=== PATIENT | female | born 1950 | race Caucasian/White ===

== ENCOUNTER → 2016-12-17 | Outpatient (REF) | payer OTHER | LOC: M SFHCCLAY 06:58 | PROVIDERS: ATTEND Family Medicine | DX: Z53.8 Procedure and treatment not carried out for other reasons (principal); E11.9 Type 2 diabetes mellitus without complications; I10 Essential (primary) hypertension ==

== ENCOUNTER → 2017-03-14 | Outpatient (REF) | payer OTHER, SELFPAY ==
[2017-03-14 11:41] LABS: MEAN CORPUSCULAR HGB CONC 31.9 g/dl (32.0-36.5); MEAN CORPUSCULAR VOLUME 87.5 fl (80.0-96.0)
[2017-03-14 11:53] LABS: ALBUMIN 3.8 GM/DL (3.2-5.2); ALBUMIN/GLOBULIN RATIO 0.9 (1.00-1.93); BILIRUBIN,TOTAL 0.6 MG/DL (0.2-1.0); CALCIUM LEVEL 9.8 MG/DL (8.8-10.2); GLOMERULAR FILTRATION RATE 59.4 (>45); POTASSIUM SERUM 5.1 MEQ/L (3.5-5.1)
== END ==
LOC: M SFHCCLAY 08:52
PROVIDERS: ATTEND Family Medicine
DX: R10.11 Right upper quadrant pain (principal)

== ENCOUNTER → 2017-03-20 | Outpatient (CLI) | payer SELFPAY ==
[~2017-03-20] MED LIST: E-Z-GAS II EFFERVESCENT PACKET (SODIUM BICARB./CITRIC ACID/SIMETHICONE) As Ordered ONE; E-Z-HD 98% w/w 340GM SUSP BTL As Ordered ONE; E-Z-PAQUE 96% w/w SUSP 176GM BTL As Ordered ONE
--- NOTE | 2017-03-20 16:46 | REP ---
UPPER GI, AIR CONTRAST: The procedure was performed under the direct supervision of Dr. Rendon. The images were reviewed with Dr. Rendon. The athletics director film shows no organomegaly or pathological masses. The intestinal gas pattern is nonspecific. Liquid barium and gas-producing granules were given in the erect position as well as liquid barium in the prone oblique position in order to perform a double contrast upper GI examination. The oral and pharyngeal stages of deglutition are unremarkable. Esophageal transport is prompt and efficient and there is no esophagitis, stricture, mucosal ring or hiatal hernia. Gastroesophageal reflux is not demonstrated on this examination. The stomach hinojosa are normally outlined. The rugal folds are smooth and regular. There is no gastritis, neoplasm or ulcer disease. The duodenal hinojosa are normally outlined. The mucosal folds are smooth and regular. There is no duodenitis, pancreatitis, peptic ulcer disease or neoplasm. The visualized portion of the proximal small bowel appears normal in course and caliber. The barium column was followed through the small bowel to the level of the terminal ileum. Small bowel transit time is approximately 1 hour and 10 minutes. During fluoroscopy gentle palpation shows all loops are freely movable and pliable. There are no fixed or angulated loops. The small bowel mucosal pattern is normal in course and caliber. There is no transition to suggest a partial small bowel obstruction. Spot filming of the terminal ileum shows it to be unremarkable. IMPRESSION: Essentially unremarkable double contrast upper GI and small bowel follow through examination. 2 minutes and 26 seconds of fluoroscopy time was utilized for this procedure. Reviewed by REGAN Chaves 03/21/2017 04:18 PEdited and Signed by Guillermo Rendon MD 03/21/2017 04:21 P
--- NOTE | 2017-03-21 03:07 | REP ---
Clinical: Right upper quadrant pain. Technique: Real time scott scale ultrasound examination using curved array transducer. Findings: The patient is status post cholecystectomy. No biliary ductal dilatation is appreciated and the common bile duct measures 6.7 mm diameter. The liver demonstrates increased parenchymal echogenicity and nodular contour suggesting cirrhosis. No focal hepatic lesions are identified. Right kidney is normal in reniform shape without hydronephrosis and measures 10.5 x 4.6 x 3.4 cm with 1.2 cm cortical mid pole cyst. No ascites in the right upper quadrant. Impression: Findings to suggest cirrhosis without focal hepatic lesion identified. Essentially normal right kidney with small cyst and no hydronephrosis. Signed by William Hartley MD 03/21/2017 02:59 A
== END ==
LOC: M RAD 08:30
PROVIDERS: ATTEND Family Medicine
DX: N28.1 Cyst of kidney, acquired (principal)

== ENCOUNTER → 2017-03-28 | Outpatient (REF) | payer OTHER, SELFPAY ==
[2017-03-28 12:02] LABS: FERRITIN 29 NG/ML (8-252)
[2017-03-28 13:00] LABS: HEPATITIS B SURFACE ANTIBODY NEGATIVE (POSITIVE)
== END ==
LOC: M SFHCCLAY 08:23
PROVIDERS: ATTEND Family Medicine
DX: K74.60 Unspecified cirrhosis of liver (principal)

== ENCOUNTER → 2017-08-12 | Outpatient (CLI) | payer MEDICARE ==
[~2017-08-12] MED LIST changes: +ASPI325T24 PO; +BENA25CA4 PO; -E-Z-GAS II EFFERVESCENT PACKET (SODIUM BICARB./CITRIC ACID/SIMETHICONE) As Ordered ONE; -E-Z-HD 98% w/w 340GM SUSP BTL As Ordered ONE; -E-Z-PAQUE 96% w/w SUSP 176GM BTL As Ordered ONE; +GAVICHW PO; +LOSA25TA8 PO; +METF500T4 PO; +METO50TA7 PO; +RANI15TA PO; +TYLE500T78 PO
[2017-08-12 11:42] LABS: INR 1.06
[2017-08-12 12:02] LABS: ALBUMIN 3.8 GM/DL (3.2-5.2); ALKALINE PHOSPHATASE 142 U/L (45-117); ALT/SGPT 30 U/L (12-78); AST/SGOT 33 U/L (15-37); BILIRUBIN,DIRECT 0.2 MG/DL (0.0-0.2); BILIRUBIN,TOTAL 0.6 MG/DL (0.2-1.0); GAMMA GLUTAMYLTRANSPEPTIDASE 297 U/L (5-55); TOTAL IRON BINDING CAPACITY 468 UG/DL (250-450); TOTAL PROTEIN 7.6 GM/DL (6.4-8.2)
[2017-08-15 00:07] LABS: SJOGREN'S ANTI SS-A <0.2 AI (0.0-0.9); SJOGREN'S ANTI SS-B <0.2 AI (0.0-0.9)
== END ==
LOC: M LAB 10:43
PROVIDERS: ATTEND Internal Medicine Gastroenterology
DX: R93.3 Abnormal findings on diagnostic imaging of other parts of digestive tract (principal); Z12.11 Encounter for screening for malignant neoplasm of colon; Z79.899 Other long term (current) drug therapy; K74.60 Unspecified cirrhosis of liver; I10 Essential (primary) hypertension

== ENCOUNTER → 2017-11-28 | Outpatient (CLI) | payer MEDICARE | LOC: M SMT 10:21 | DX: R33.9 Retention of urine, unspecified (principal); Z98.890 Other specified postprocedural states | CPT/HCPCS: 74018; G0463 ==

== ENCOUNTER → 2017-12-11 | Outpatient (REF) | payer MEDICARE ==
[2017-12-11 11:46] LABS: HEMATOCRIT 35.1 % (36.0-47.0); HEMOGLOBIN 11.4 g/dl (12.0-16.0); MEAN CORPUSCULAR HEMOGLOBIN 25.8 pg (27.0-33.0); MEAN CORPUSCULAR HGB CONC 32.5 g/dl (32.0-36.5); MEAN CORPUSCULAR VOLUME 79.4 fl (80.0-96.0); PLATELET COUNT, AUTOMATED 525 10^3/uL (150-450); RED BLOOD COUNT 4.42 10^6/uL (4.00-5.40); RED CELL DISTRIBUTION WIDTH 14.5 % (11.5-14.5); WHITE BLOOD COUNT 18.4 10^3/uL (4.0-10.0)
[2017-12-11 12:00] LABS: ANION GAP 13 MEQ/L (8-16); BLOOD UREA NITROGEN 45 MG/DL (7-18); CALCIUM LEVEL 9.7 MG/DL (8.8-10.2); CARBON DIOXIDE LEVEL 24 MEQ/L (21-32); CHLORIDE LEVEL 86 MEQ/L (98-107); CREATININE FOR GFR 2.77 MG/DL (0.55-1.30); GLOMERULAR FILTRATION RATE 18.3 (>45); GLUCOSE, FASTING 152 MG/DL (70-100); POTASSIUM SERUM 5.1 MEQ/L (3.5-5.1); SODIUM LEVEL 123 MEQ/L (136-145)
[2017-12-11 12:08] LABS: ESTIMATED AVERAGE GLUCOSE 200 MG/DL (60-110); HEMOGLOBIN A1c 8.6 %
== END ==
LOC: M SFHCCLAY 09:06
DX: E11.9 Type 2 diabetes mellitus without complications (principal); I10 Essential (primary) hypertension; Z93.2 Ileostomy status
CPT/HCPCS: 83036

== ENCOUNTER 2017-12-12 10:36 | Outpatient (CLI) | payer MEDICARE ==
[2017-12-12] MEDS: SODIUM CHLORIDE 0.9% 1000 ML IV (11:44)
[2017-12-12] MEDS: NS 1,000 ML IV (11:44)
[2017-12-12] MEDS: ACETAMINOPHEN TAB 650MG DOSE (2X325MG) PO (14:15)
== END 2017-12-12 17:05 | disposition home or self-care (01) ==
LOC: M OPCLI4PR 10:36 → M PED 10:41 → M OPCLI4PR 17:05
DX: E86.0 Dehydration (principal); Z79.891 Long term (current) use of opiate analgesic; Z79.899 Other long term (current) drug therapy; Z88.0 Allergy status to penicillin; Z88.5 Allergy status to narcotic agent; Z88.8 Allergy status to other drugs, medicaments and biological substances
CPT/HCPCS: 96360

== ENCOUNTER → 2017-12-15 | Outpatient (REF) | payer MEDICARE ==
[2017-12-15 11:37] LABS: BASO # 0.1 10^3/uL (0.0-0.2); BASO % 0.6 % (0.0-1.0); EOS # 0.4 10^3/uL (0.0-0.50); EOS % 2.7 % (0.0-3.0); HEMATOCRIT 33.3 % (36.0-47.0); HEMOGLOBIN 10.6 g/dl (12.0-16.0); IMMATURE GRANULOCYTE % 0.4 % (0-3.0); LYMPH # 3.7 10^3/uL (1.5-4.5); LYMPH % 28.3 % (24.0-44.0); MEAN CORPUSCULAR HGB CONC 31.8 g/dl (32.0-36.5); MEAN CORPUSCULAR VOLUME 81.6 fl (80.0-96.0); MONO # 0.6 10^3/uL (0.0-0.8); MONO % 4.3 % (0.0-5.0); NEUTROPHILS # 8.2 10^3/uL (1.8-7.7); NEUTROPHILS % 63.7 % (36.0-66.0); PLATELET COUNT, AUTOMATED 461 10^3/uL (150-450); RED BLOOD COUNT 4.08 10^6/uL (4.00-5.40); RED CELL DISTRIBUTION WIDTH 15.4 % (11.5-14.5); WHITE BLOOD COUNT 12.9 10^3/uL (4.0-10.0)
[2017-12-15 11:48] LABS: ANION GAP 9 MEQ/L (8-16); BLOOD UREA NITROGEN 27 MG/DL (7-18); CALCIUM LEVEL 9.8 MG/DL (8.8-10.2); CARBON DIOXIDE LEVEL 24 MEQ/L (21-32); CHLORIDE LEVEL 99 MEQ/L (98-107); CREATININE FOR GFR 1.43 MG/DL (0.55-1.30); GLOMERULAR FILTRATION RATE 39.2 (>45); GLUCOSE, FASTING 145 MG/DL (70-100); POTASSIUM SERUM 4.3 MEQ/L (3.5-5.1); SODIUM LEVEL 132 MEQ/L (136-145)
== END ==
LOC: M SFHCCLAY 08:30
DX: N17.9 Acute kidney failure, unspecified (principal)
CPT/HCPCS: 80048

== ENCOUNTER → 2018-07-06 | Outpatient (REF) | payer MEDICARE ==
[2018-07-06 12:43] LABS: HEMATOCRIT 34.8 % (36.0-47.0); HEMOGLOBIN 10.9 g/dl (12.0-15.5); MEAN CORPUSCULAR HEMOGLOBIN 27.6 pg (27.0-33.0); MEAN CORPUSCULAR HGB CONC 31.3 g/dl (32.0-36.5); MEAN CORPUSCULAR VOLUME 88.1 fl (80.0-96.0); PLATELET COUNT, AUTOMATED 164 10^3/uL (150-450); RED BLOOD COUNT 3.95 10^6/uL (4.00-5.40); RED CELL DISTRIBUTION WIDTH 15.4 % (11.5-14.5); WHITE BLOOD COUNT 4.5 10^3/uL (4.0-10.0)
[2018-07-06 13:49] LABS: MALB URINE SIEMENS 35.5 MG/L
[2018-07-06 13:50] LABS: MAU/CREAT RATIO 27.7 MCG/MG (0.0-30.0)
[2018-07-06 14:01] LABS: ALBUMIN 3.7 GM/DL (3.2-5.2); ALBUMIN/GLOBULIN RATIO 1.03 (1.00-1.93); ALKALINE PHOSPHATASE 94 U/L (45-117); ALT/SGPT 19 U/L (12-78); ANION GAP 9 MEQ/L (8-16); AST/SGOT 26 U/L (7-37); BILIRUBIN,TOTAL 0.3 MG/DL (0.2-1.0); BLOOD UREA NITROGEN 22 MG/DL (7-18); CALCIUM LEVEL 9.5 MG/DL (8.8-10.2); CARBON DIOXIDE LEVEL 25 MEQ/L (21-32); CHLORIDE LEVEL 110 MEQ/L (98-107); CHOLESTEROL LEVEL 206 MG/DL (<200); CHOLESTEROL RISK RATIO 3.218 (<5); CREATININE FOR GFR 0.86 MG/DL (0.55-1.30); GLOMERULAR FILTRATION RATE > 60.0 (>45); GLUCOSE, FASTING 104 MG/DL (70-100); HDL CHOLESTEROL 64 MG/DL (>40); LDL CHOLESTEROL 116 MG/DL (<100); NON-HDL-C 142 MG/DL; POTASSIUM SERUM 4.1 MEQ/L (3.5-5.1); SODIUM LEVEL 144 MEQ/L (136-145); TOTAL PROTEIN 7.3 GM/DL (6.4-8.2); TRIGLYCERIDES LEVEL 128 MG/DL (<150)
[2018-07-06 16:04] LABS: ESTIMATED AVERAGE GLUCOSE 114 MG/DL (60-110); HEMOGLOBIN A1c 5.6 %
[2018-07-06 17:22] LABS: AMMONIA 99 uMOL/L (<32)
== END ==
LOC: M SFHCCLAY 08:23
DX: K74.60 Unspecified cirrhosis of liver (principal); I10 Essential (primary) hypertension; E11.9 Type 2 diabetes mellitus without complications
CPT/HCPCS: 82140

== ENCOUNTER → 2018-09-01 | Outpatient (CLI) | payer MEDICARE ==
[~2018-09-01] MED LIST changes: -ASPI325T24 PO; -BENA25CA4 PO; +GASTROGRAFIN SOLUTION 30ML (Q9963) As Ordered; -GAVICHW PO; +ISOVUE-370 76% 100ML VIAL (Q9967) As Ordered; -LOSA25TA8 PO; -METF500T4 PO; -METO50TA7 PO; -RANI15TA PO; -TYLE500T78 PO
== END ==
LOC: M RAD 16:36
DX: D12.6 Benign neoplasm of colon, unspecified (principal); R10.9 Unspecified abdominal pain; Z90.49 Acquired absence of other specified parts of digestive tract; K43.9 Ventral hernia without obstruction or gangrene; N28.1 Cyst of kidney, acquired
CPT/HCPCS: Q9963

== ENCOUNTER → 2018-09-12 | Outpatient (CLI) | payer MEDICARE ==
[2018-09-12 14:12] LABS: URIC ACID 7.4 MG/DL (2.6-6.0)
== END ==
LOC: M WUC 11:53
DX: M19.071 Primary osteoarthritis, right ankle and foot (principal); M79.671 Pain in right foot
CPT/HCPCS: 84550

== ENCOUNTER 2018-12-17 04:07 | Inpatient (IN) | payer MEDICARE ==
[~2018-12-17] VITALS: Ht 160 cm; Wt 68.7 kg
[~2018-12-17 04:07] MED LIST changes: +ASPI325T25 PO; +BENA25CA4 PO; +CIPR500T3 PO; -GASTROGRAFIN SOLUTION 30ML (Q9963) As Ordered; +GAVICHW PO; -ISOVUE-370 76% 100ML VIAL (Q9967) As Ordered; +LOPE2TAB5 PO; +LOSA25TA14 PO; +METF500T4 PO; +METO50TA7 PO; +OXYC1TAB23 PO; +RANI15TA PO; +TYLE500T78 PO; +ZOFR4TAB16 PO
[2018-12-17] MEDS ORDERED: DIPH2.5T14 PO (04:25)
[2018-12-17] MEDS ORDERED: ATEN25TA PO (04:25)
[2018-12-17] MEDS ORDERED: ONDA4TAB5 PO (04:25)
[2018-12-17] MEDS ORDERED: ONDANSETRON 4MG/2ML VIAL (J2405) As Ordered ONE (04:34)
[2018-12-17] MEDS ORDERED: MORPHINE 2 MG/ML 1ML SYRINGE (J2270) As Ordered ONE (04:55)
[2018-12-17] MEDS: MORPHINE 2 MG/ML 1ML SYRINGE (J2270) IV PRN ×2 (04:59→05:32)
[2018-12-17] MEDS ORDERED: ONDANSETRON 4MG/2ML VIAL (J2405) IV ONE (05:00)
[2018-12-17] MEDS ORDERED: NS 1,000 ML IV ONE (05:00)
[2018-12-17 05:14] LABS: BASO # 0.1 10^3/uL (0.0-0.2); BASO % 0.3 % (0.0-1.0); EOS # 0.1 10^3/uL (0.0-0.50); EOS % 0.7 % (0.0-3.0); HEMATOCRIT 40.2 % (36.0-47.0); HEMOGLOBIN 12.7 g/dl (12.0-15.5); LYMPH # 2.4 10^3/uL (1.5-4.5); LYMPH % 11.6 % (24.0-44.0); MEAN CORPUSCULAR HEMOGLOBIN 27.1 pg (27.0-33.0); MEAN CORPUSCULAR HGB CONC 31.6 g/dl (32.0-36.5); MEAN CORPUSCULAR VOLUME 85.9 fl (80.0-96.0); MONO # 1.2 10^3/uL (0.0-0.8); NEUTROPHILS # 16.3 10^3/uL (1.8-7.7); NEUTROPHILS % 80.9 % (36.0-66.0); PLATELET COUNT, AUTOMATED 270 10^3/uL (150-450); RED BLOOD COUNT 4.68 10^6/uL (4.00-5.40); WHITE BLOOD COUNT 20.2 10^3/uL (4.0-10.0)
[2018-12-17 05:17] LABS: INR 1.15; PROTHROMBIN TIME 14.9 SECONDS (12.1-14.4)
[2018-12-17 05:18] LABS: PARTIAL THROMBOPLASTIN TIME 33.2 SECONDS (25.4-37.6)
[2018-12-17 05:26] LABS: ALBUMIN 4.1 GM/DL (3.2-5.2); BILIRUBIN,DIRECT 0.1 MG/DL (0.0-0.2); BILIRUBIN,TOTAL 0.4 MG/DL (0.2-1.0); CALCIUM LEVEL 9.4 MG/DL (8.8-10.2); CREATININE FOR GFR 1.23 MG/DL (0.55-1.30); GLOMERULAR FILTRATION RATE 46.5 (>45); POTASSIUM SERUM 3.5 MEQ/L (3.5-5.1); TOTAL PROTEIN 8.3 GM/DL (6.4-8.2)
[2018-12-17] MEDS ORDERED: METOCLOPRAMIDE INJ 10MG/2ML VIAL (J2765) As Ordered ONE (05:39)
[2018-12-17] MEDS ORDERED: METOCLOPRAMIDE INJ 10MG/2ML VIAL (J2765) IV ONE ×2 (05:45→07:30)
[2018-12-17] MEDS ORDERED: ISOVUE-370 76% 100ML VIAL (Q9967) As Ordered ONE (05:56)
--- NOTE | 2018-12-17 06:58 | REPVR ---
EXAM: CT Abdomen and Pelvis With Contrast EXAM DATE/TIME: 12/17/2018 5:50 AM CLINICAL HISTORY: 68 years old, female; Pain; Abdominal pain; Generalized; Additional info: Abd pain, nvd TECHNIQUE: Axial computed tomography images of the abdomen and pelvis with intravenous contrast. All CT scans at this facility use at least one of these dose optimization techniques: automated exposure control; mA and/or kV adjustment per patient size (includes targeted exams where dose is matched to clinical indication); or iterative reconstruction. Coronal and sagittal reformatted images were created and reviewed. CONTRAST: Contrast Material: 100 ml of iso; Contrast Route: ac COMPARISON: CT ABD PELVIS WITH CONTRAST 09/01/2018 6:25 PM FINDINGS: Lower thorax: There is minimal, nonspecific dependent density in the lung bases. ABDOMEN: Liver: The liver is mildly enlarged, unchanged. The surface of the liver again appears nodular, consistent with cirrhosis. There is a small amount of perihepatic fluid. Gallbladder and bile ducts: There is stable mild biliary ductal dilation. There has been a cholecystectomy. Pancreas: The pancreas is normal with no ductal dilation. Spleen: Several small sites of focal hyperenhancement in the spleen are unchanged. The spleen is again enlarged measuring 16 cm craniocaudal. Adrenals: The adrenal glands are normal. Kidneys and ureters: Mild diffuse thinning of the right renal parenchyma is seen, indicating atrophy, unchanged. There is a 1.9 x 1.7 cm hyperdense lesion in the right kidney midpole posteriorly, unchanged in size and appearance compared to the prior exam. There is a hyperdense 18 mm right kidney upper pole lesion increased in size compared to 14 mm on the prior exam. There is a stable low attenuation 13 mm right kidney lower pole lesion and small stable cysts in the left kidney. There are no ureteral stones or hydronephrosis. Stomach and bowel: There is again evidence of a colon resection and a distal anastomotic suture line and a J-pouch. There is fluid throughout the small bowel and the J-pouch without significant dilation. No significant bowel wall thickening is identified. Mild stranding around the J-pouch appears similar to the prior exam and may be postoperative change. Appendix: Absent. PELVIS: Bladder: The bladder is mostly collapsed. No bladder stones are identified. Reproductive: The uterus is absent. ABDOMEN and PELVIS: Intraperitoneal space: There is no free intraperitoneal air. Bones/joints: No suspicious osseous lesions. No acute fractures or dislocations. Soft tissues: There is a small midline upper anterior abdominal wall hernia containing fat. Vasculature: Atherosclerotic changes are present in the abdominal aorta and the iliac arteries. Lymph nodes: Normal. No enlarged lymph nodes. IMPRESSION: 1. Fluid throughout the bowel without dilation or significant bowel wall thickening. Mild stranding around the distal bowel, around what is likely a J-pouch, appears grossly unchanged and may be postoperative in nature or persistent mild inflammation. 2. No free air or free fluid. 3. Hepatomegaly, a nodular surface of the liver, and mild splenomegaly, unchanged. 4. Several hyperdense lesions in the right kidney, which may be hyperdense cysts but are not fully assessed on this exam. As there is increase in size of one lesion in the upper pole of the right kidney, consider further evaluation with MRI or multiphasic CT scan. COMMENT: Consistent with the [employer] Incidental Findings Committee Report (J Am Sofia Radiol 2010): Unless the patients specific circumstances suggest otherwise, any liver lesion 0.5 cm or less, any cystic kidney lesion less than 1.0 cm, and/or any adrenal lesion 1.0 cm or less not otherwise characterized in this report as possessing suspicious or indeterminate imaging features is/are highly likely to be benign and do not require follow-up imaging or biopsy. Electronically signed by: Frida Ocampo On 12/17/2018 06:58:00 AM
[2018-12-17] MEDS ORDERED: ONDANSETRON 4 MG TAB (S0181) PO PRN (12:30)
--- NOTE | 2018-12-17 13:11 | HPEPDOC ---
[facility] Medical History & Physical Date of Admission Dec 17, 2018 Primary Care Physician: Braeden Nava MD Attending Physician: Pavel Skinner MD History and Physical CHIEF COMPLAINT: Nausea, vomiting, diarrhea. HISTORY OF PRESENT ILLNESS: Patient is a 68 year old female with past medical history significant for total colectomy with ileal J pouch presents with nausea, vomiting, and diarrhea. Patient says it all started around 2 AM this morning. She woke up nauseated and vomited several times. A few hours later she began to have liquid watery stools, several times. Also has some abdominal discomfort but not pain. Points to pain in center of abdomen. She had her Colectomy about a month ago. Has been on immodium for diarrhea. Denies fevers, chills, night sweats. No unusual foods. Denies nsaid use, recent alcohol use. Has a sip of wine every now and then. PAST MEDICAL HISTORY: 1. HTN 2. Hypercholesterolemia 3. Diabetes 4. GERD 5. Tachycardia 6. Gout PAST SURGICAL HISTORY: 1. Total colectomy with ileal J pouch 11/19/17 2. Ileostomy reversal 01/2018 3. Hysterectomy 2001 4. Colonoscopy/ endoscopy 2009 SOCIAL HISTORY: Marital status: . Resides in: [place], [place] Children:two children Employment: House Tobacco use:Former smoker, quit 09/2015 ETOH: occasional, none lately Illicit drug use: none IV drug use: deny FAMILY HISTORY: Father: , cancer Mother: , diabetes ALLERGIES: Please see below. REVIEW OF SYSTEMS: CONSTITUTIONAL: No fevers, chills. HEENT: No headache. CARDIOVASCULAR: No chest pain, palpitations. RESPIRATORY: Clear to auscultation. GASTROINTESTINAL: Pos for nausea, vomiting, diarrhea. GENITOURINARY: No urinary frequency. SKIN: No rashes, lesions. MUSCULOSKELETAL: No muscle aches, weakness. NEUROLOGICAL: No numbness. PSYCHIATRIC: No depression ENDOCRINE: No night sweats. HEMATOLOGIC/LYMPHATIC: No bruising. HOME MEDICATIONS: Please see below. PHYSICAL EXAMINATION: VITAL SIGNS: Temperature 99.4, pulse 92, respiratory rate 22, blood pressure 114/63, pulse oximetry 96% on room air. GENERAL APPEARANCE: Cooperative. No distress. Laying in bed. HEENT: Atraumatic. CARDIOVASCULAR: Normal s1, s2. LUNGS: Clear to auscultation. ABDOMEN: Bowel sounds to auscultation. . MUSCULOSKELETAL: No gross weakness. EXTREMITIES: No lower extremity edema. NEUROLOGICAL: Speech intact. PSYCHIATRIC: Normal affect. LABORATORY DATA: See below. IMAGING: Abdomen/Pelvis CT 1. Fluid throughout the bowel without dilation or significant bowel wall thickening. Mild stranding around the distal bowel, around what is likely a J-pouch, appears grossly unchanged and may be postoperative in nature or persistent mild inflammation. 2. No free air or free fluid. 3. Hepatomegaly, a nodular surface of the liver, and mild splenomegaly, unchanged. 4. Several hyperdense lesions in the right kidney, which may be hyperdense cysts but are not fully assessed on this exam. As there is increase in size of one lesion in the upper pole of the right kidney, consider further evaluation with MRI or multiphasic CT scan. MICROBIOLOGY: Please see below. ASSESSMENT: A 68 year old female with PMH significant for total colectomy [place] to the ER with nausea, vomiting and diarrhea. This started this AM. PLAN: 1. Gastritis. Likely viral cause. Noted on CT scan of abdomen. Clinically monitor. Patient has elevated WBC. Repeat CBC in AM. Ordering GI panel for possible infectious causes. For abdominal pain monitor for now, not bothering patient. She has Ultram on contraindications for N/V, low BP. 2. Vomiting, nausea, diarrhea. Likely secondary to gastritis. May be secondary to patient's recent colectomy. Control patient's nausea with Reglan and Zofran as needed. Monitor diarrhea. Holding immodium for now. If GI panel negative consider restarting. 3. HTN. Patient is not on any medication for HTN at this time. Does take A tenolol PRN for tachycardia and if BP is high. 4. Tachycardia. Patient has Atenolol PRN. Patient denies taking at this time. Holding for now. 5. Diabetic. Recent A1C 5.6. Diet controlled. 6. Hypercholesterolemia. Not on any statin. No reported allergy. 7. GERD. On Ranitidine at home. 8. Kidney lesion, right. Noted on CT. Will need follow up outpatient. Vital Signs Vital Signs Date Time Temp Pulse Resp B/P (MAP) Pulse Ox O2 Delivery O2 Flow Rate FiO2 12/17/18 11:10 99.4 92 22 114/63 (80) 96 Room Air Laboratory Data Labs 24H Laboratory Tests 2 12/17/18 04:27: Immature Granulocyte % (Auto) 0.5, White Blood Count 20.2H, Red Blood Count 4.68, Hemoglobin 12.7, Hematocrit 40.2, Mean Corpuscular Volume 85.9, Mean Corpuscular Hemoglobin 27.1, Mean Corpuscular Hemoglobin Concent 31.6L, Red Cell Distribution Width 14.3, Platelet Count 270, Neutrophils (%) (Auto) 80.9H, Lymphocytes (%) (Auto) 11.6L, Monocytes (%) (Auto) 6.0H, Eosinophils (%) (Auto) 0.7, Basophils (%) (Auto) 0.3, Neutrophils # (Auto) 16.3H, Lymphocytes # (Auto) 2.4, Monocytes # (Auto) 1.2H, Eosinophils # (Auto) 0.1, Basophils # (Auto) 0.1, Nucleated Red Blood Cells % (auto) 0.0, Prothrombin Time 14.9H, Prothromb Time International Ratio 1.15, Activated Partial Thromboplast Time 33.2 12/17/18 04:28: Anion Gap 11, Glomerular Filtration Rate 46.5, Calcium Level 9.4, Aspartate Amino Transf (AST/SGOT) 24, Alanine Aminotransferase (ALT/SGPT) 23, Alkaline Phosphatase 95, Total Bilirubin 0.4, Direct Bilirubin 0.1, Total Protein 8.3H, Albumin 4.1, Albumin/Globulin Ratio 0.98L, Lipase 94 CBC/BMP Laboratory Tests 12/17/18 04:27 Red Blood Count 4.68, Mean Corpuscular Volume 85.9, Mean Corpuscular Hemoglobin 27.1, Mean Corpuscular Hemoglobin Concent 31.6 L, Red Cell Distribution Width 14.3, Neutrophils (%) (Auto) 80.9 H, Lymphocytes (%) (Auto) 11.6 L, Monocytes (%) (Auto) 6.0 H, Eosinophils (%) (Auto) 0.7, Basophils (%) (Auto) 0.3, Neutrophils # (Auto) 16.3 H, Lymphocytes # (Auto) 2.4, Monocytes # (Auto) 1.2 H, Eosinophils # (Auto) 0.1, Basophils # (Auto) 0.1 12/17/18 04:28 Home Medications Scheduled Diphenoxylate/Atropine (Diphenoxylate/Atropine 2.5-0.025 mg) 1 Ea Tab, 2 TAB PO TID Loperamide HCl (Loperamide HCl) 2 Mg Tab, 2 MG PO TID Scheduled PRN Atenolol (Atenolol) 25 Mg Tab, 25 MG PO ASDIRECTED PRN for INCREASED HR TAKES IF HR IS >100 Ondansetron HCl (Ondansetron HCl) 4 Mg Tab, 4 MG PO QID PRN for NAUSEA OR VOMITING Allergies Coded Allergies: Heparin (Verified Allergy, Severe, 12/17/18) HIVES Penicillins (Verified Allergy, Mild, HIVES, 01/18/13) Penicillins Cross Reactors (Verified Allergy, Mild, HIVES, 01/18/13) Cetirizine (Verified Allergy, Unknown, HIVES, 08/19/17) Tetanus Toxoid (Unverified Adverse Reaction, Intermediate, SWOLLEN ARM AND VERY RED, 01/18/13) Tramadol (Unverified Adverse Reaction, Mild, N/V LOW BP, 08/19/17) Codeine (Verified Adverse Reaction, Unknown, GI upset, 08/19/17) GME ATTESTATION GME ATTESTATION My faculty preceptor for this patient encounter was physically present during the encounter and was fully available. All aspects of the patient interview, examination, medical decision making process, and medical care plan development were reviewed and approved by the faculty preceptor. The faculty preceptor is aware and concurs with the plan as stated in the body of this note and will attest to such by his/her cosignature. MACKENZIE PINZON DO Dec 17, 2018 13:11
[2018-12-17 14:00] VITALS: BP 138/72
[2018-12-17] MEDS: LACTOBACILLUS ACIDOPHILUS CAP (BACID) PO SCH (17:10)
[2018-12-17] MEDS: ONDANSETRON 4MG/2ML VIAL (J2405) IV PRN (18:02)
[2018-12-17] MEDS: METOCLOPRAMIDE INJ 10MG/2ML VIAL (J2765) IV PRN (20:24)
[2018-12-17 22:00] VITALS: BP 137/75
[2018-12-18] MEDS: ACETAMINOPHEN 325 MG TAB PO PRN ×3 (01:45→20:48)
[2018-12-18] MEDS: METOCLOPRAMIDE INJ 10MG/2ML VIAL (J2765) IV PRN ×2 (05:48→23:06)
[2018-12-18 05:59] LABS: BASO # 0.1 10^3/uL (0.0-0.2); BASO % 0.4 % (0.0-1.0); EOS % 0.1 % (0.0-3.0); HEMATOCRIT 44.5 % (36.0-47.0); HEMOGLOBIN 14.6 g/dl (12.0-15.5); LYMPH # 0.9 10^3/uL (1.5-4.5); LYMPH % 5.5 % (24.0-44.0); MEAN CORPUSCULAR HGB CONC 32.8 g/dl (32.0-36.5); MEAN CORPUSCULAR VOLUME 82.4 fl (80.0-96.0); MONO # 1.2 10^3/uL (0.0-0.8); MONO % 7.4 % (0.0-5.0); NEUTROPHILS # 13.8 10^3/uL (1.8-7.7); PLATELET COUNT, AUTOMATED 309 10^3/uL (150-450)
[2018-12-18 06:00] VITALS: BP 133/77
[2018-12-18 06:28] LABS: CALCIUM LEVEL 10.5 MG/DL (8.8-10.2); CREATININE FOR GFR 3.31 MG/DL (0.55-1.30); GLOMERULAR FILTRATION RATE 14.8 (>45)
[2018-12-18] MEDS: ONDANSETRON 4MG/2ML VIAL (J2405) IV PRN (06:47)
[2018-12-18] MEDS ORDERED: NS 500 ML IV ONE (08:15)
[2018-12-18] MEDS: LACTOBACILLUS ACIDOPHILUS CAP (BACID) PO SCH ×2 (08:23→16:50)
--- NOTE | 2018-12-18 08:26 | IPNPDOC ---
Subjective Date Seen The patient was seen on 12/18/18. Subjective Chief Complaint/HPI Diarrhea seems to have let up some. no significant abd pain. Still feels nauseated. feels weaka nd having leg cramps. Constitutional: Denies: Chills, Fever Pulmonary: Denies: Dyspnea, Cough Cardiovascular: Denies: Chest Pain Gastrointestinal: Reports: Nausea, Diarrhea; Denies: Vomiting, Abdominal Pain, Constipation Objective Physical Examination General Exam: Positive: Alert, No Acute Distress ENT Exam: Negative: Mucous membr. moist/pink (bucal mucosa dry) Chest Exam: Negative: Clear to auscultation, Rales, Rhonchi, Wheezing Heart Exam: Positive: Rate Normal, Regular Rhythm Abdomen Exam: Positive: Normal bowel sounds, Soft; Negative: Tenderness Extremity Exam: Negative: Edema Skin Exam: Negative: Nl turgor and temperature (poor turgor) Assessment /Plan Problems (1) Acute kidney injury (nontraumatic) Status: Acute Response to Treatment: Worse Problem Text: 12/18 - Creatine has risen from 1 to 3.3 - likley related to dehydration in combination with MOIRA from IV contrast given in Er. IVF Bolus and maintenance ordered this am Potassium ok. Check mag level as well (2) Norovirus Status: Acute Response to Treatment: Improving Problem Text: cont Zofran and Reglan prn. Cont clear liquid diet for now CT: Fluid throughout the bowel without dilation or significant bowel wall thickening. Mild stranding around the distal bowel, around what is likely a J-pouch, appears grossly unchanged and may be postoperative in nature or persistent mild inflammation. (3) CKD (chronic kidney disease), stage III Response to Treatment: Worse Problem Text: see above (4) Kidney lesion Problem Text: Several hyperdense lesions in the right kidney, which may be hyperdense cysts but are not fully assessed on this exam. As there is increase in size of one lesion in the upper pole of the right kidney, consider further evaluation with MRI or multiphasic CT scan. Unable to perform an MRI or multiphasic CT at this time due to MOIRA - WILL NEED F/U Outpatient (5) Hepatomegaly Problem Text: CT: Hepatomegaly, a nodular surface of the liver, and mild splenomegaly, unchanged. Will need further workup and f/u as outpatient Plan/VTE VTE Prophylaxis Ordered?: Yes (TEDS/Sequentials - No heparin due to Allergy per allergy list) VTE Exclusion Pharmacological: History of Drug Allergy VS, I&O, 24H, Fishbone Vital Signs/I&O Vital Signs Date Time Temp Pulse Resp B/P (MAP) Pulse Ox O2 Delivery O2 Flow Rate FiO2 12/18/18 06:00 98.4 118 19 133/77 (95) 99 12/17/18 13:32 Room Air I&O- Last 24 Hours up to 6 AM 12/18/18 06:00 Intake Total 2800 ml Output Total 3950 ml Balance -1150 ml Laboratory Data 24H LABS Laboratory Tests 2 12/18/18 05:40: Immature Granulocyte % (Auto) 0.6, White Blood Count 16.0H, Red Blood Count 5.40, Hemoglobin 14.6, Hematocrit 44.5, Mean Corpuscular Volume 82.4, Mean Corpuscular Hemoglobin 27.0, Mean Corpuscular Hemoglobin Concent 32.8, Red Cell Distribution Width 14.5, Platelet Count 309, Neutrophils (%) (Auto) 86.0H, Lymphocytes (%) (Auto) 5.5L, Monocytes (%) (Auto) 7.4H, Eosinophils (%) (Auto) 0.1, Basophils (%) (Auto) 0.4, Neutrophils # (Auto) 13.8H, Lymphocytes # (Auto) 0.9L, Monocytes # (Auto) 1.2H, Eosinophils # (Auto) 0.0, Basophils # (Auto) 0.1, Nucleated Red Blood Cells % (auto) 0.0, Anion Gap 16, Glomerular Filtration Rate 14.8L, Blood Urea Nitrogen 39#H, Creatinine 3.31#H, Sodium Level 133#L, Potassium Level 4.0, Chloride Level 99, Carbon Dioxide Level 18L, Calcium Level 10.5H CBC/BMP Laboratory Tests 12/18/18 05:40 Red Blood Count 5.40, Mean Corpuscular Volume 82.4, Mean Corpuscular Hemoglobin 27.0, Mean Corpuscular Hemoglobin Concent 32.8, Red Cell Distribution Width 14.5, Neutrophils (%) (Auto) 86.0 H, Lymphocytes (%) (Auto) 5.5 L, Monocytes (%) (Auto) 7.4 H, Eosinophils (%) (Auto) 0.1, Basophils (%) (Auto) 0.4, Neutrophils # (Auto) 13.8 H, Lymphocytes # (Auto) 0.9 L, Monocytes # (Auto) 1.2 H, Eosinophils # (Auto) 0.0, Basophils # (Auto) 0.1, Calcium Level 10.5 H Microbiology Microbiology 12/17/18 Gastrointestinal Tract Panel (PCR) - Final, Complete Norovirus BILLY DICKERSON PA-C Dec 18, 2018 08:26
[2018-12-18 08:46] LABS: MAGNESIUM LEVEL 2.2 MG/DL (1.8-2.4)
[2018-12-18] MEDS: NS 1,000 ML IV SCH ×3 (10:00→23:20)
[2018-12-18 14:00] VITALS: BP 119/64
[2018-12-18 22:00] VITALS: BP 130/82
[2018-12-19] MEDS: ONDANSETRON 4MG/2ML VIAL (J2405) IV PRN ×2 (01:29→20:30)
[2018-12-19 06:00] VITALS: BP 143/75
[2018-12-19] MEDS: NS 1,000 ML IV SCH ×3 (06:00→18:15)
[2018-12-19 06:34] LABS: HEMATOCRIT 39.6 % (36.0-47.0); MEAN CORPUSCULAR HEMOGLOBIN 26.9 pg (27.0-33.0); MEAN CORPUSCULAR HGB CONC 32.8 g/dl (32.0-36.5); PLATELET COUNT, AUTOMATED 184 10^3/uL (150-450); RED BLOOD COUNT 4.83 10^6/uL (4.00-5.40); WHITE BLOOD COUNT 7.8 10^3/uL (4.0-10.0)
--- NOTE | 2018-12-19 06:36 | ECGEPIP ---
Stationary ECG Study [facility] - ED Test Date: 2018-12-17 Pat Name: SHERWIN AGUILA Department: Room: - Gender: F [employer] Architect: magdaleno : [id number] Requested By: TIGRE Umaña Order Number: [id number] Reading MD: Luis Alfredo Sabillon Measurements Intervals Hester Rate: 90 P: 35 DC: 136 QRS: 37 QRSD: 90 T: 46 QT: 384 QTc: 471 Interpretive Statements SINUS RHYTHM NONSPECIFIC ST T WAVE CHANGES PROLONGED QTC NO OLD ECG FOR COMPARISON Electronically Signed On 12-19-2018 6:36:37 EST by Luis Alfredo Sabillon
[2018-12-19 07:00] LABS: CALCIUM LEVEL 8.6 MG/DL (8.8-10.2); CREATININE FOR GFR 2.27 MG/DL (0.55-1.30); GLOMERULAR FILTRATION RATE 22.9 (>45); POTASSIUM SERUM 3.9 MEQ/L (3.5-5.1)
[2018-12-19] MEDS: LACTOBACILLUS ACIDOPHILUS CAP (BACID) PO SCH ×2 (09:02→18:12)
--- NOTE | 2018-12-19 12:47 | IPNPDOC ---
Subjective Date Seen The patient was seen on 12/19/18. Subjective Chief Complaint/HPI Tolerating oral intake. No vomiting. Would like to dry some advancement in her diet. Still have diarrhea, not as much. Constitutional: Denies: Chills, Fever Objective Physical Examination General Exam: Positive: Alert, No Acute Distress ENT Exam: Negative: Mucous membr. moist/pink (bucal mucosa dry) Chest Exam: Negative: Clear to auscultation, Rales, Rhonchi, Wheezing Heart Exam: Positive: Rate Normal, Regular Rhythm Abdomen Exam: Positive: Normal bowel sounds, Soft; Negative: Tenderness Extremity Exam: Negative: Edema Skin Exam: Negative: Nl turgor and temperature (poor turgor) Assessment /Plan Problems (1) Acute kidney injury (nontraumatic) Status: Acute Response to Treatment: Worse Problem Text: 12/19 improved today 12/18 - Creatine has risen from 1 to 3.3 - likley related to dehydration in combination with MOIRA from IV contrast given in Er. IVF Bolus and maintenance ordered this am Potassium ok. Check mag level as well (2) Norovirus Status: Acute Response to Treatment: Improving Problem Text: 12/19 Tolerating liquid diet. Advance to softs cont Zofran and Reglan prn. Cont clear liquid diet for now CT: Fluid throughout the bowel without dilation or significant bowel wall thickening. Mild stranding around the distal bowel, around what is likely a J-pouch, appears grossly unchanged and may be postoperative in nature or persistent mild inflammation. (3) CKD (chronic kidney disease), stage III Response to Treatment: Worse Problem Text: see above (4) Kidney lesion Problem Text: Several hyperdense lesions in the right kidney, which may be hyperdense cysts but are not fully assessed on this exam. As there is increase in size of one lesion in the upper pole of the right kidney, consider further evaluation with MRI or multiphasic CT scan. Unable to perform an MRI or multiphasic CT at this time due to MOIRA - WILL NEED F/U Outpatient (5) Hepatomegaly Problem Text: CT: Hepatomegaly, a nodular surface of the liver, and mild splenomegaly, unchanged. Will need further workup and f/u as outpatient Plan/VTE VTE Prophylaxis Ordered?: Yes (TEDS/Sequentials - No heparin due to Allergy per allergy list) VTE Exclusion Pharmacological: History of Drug Allergy VS, I&O, 24H, Fishbone Vital Signs/I&O Vital Signs Date Time Temp Pulse Resp B/P (MAP) Pulse Ox O2 Delivery O2 Flow Rate FiO2 12/19/18 06:00 97.5 104 20 143/75 (97) 96 12/17/18 13:32 Room Air I&O- Last 24 Hours up to 6 AM 12/19/18 06:00 Intake Total 840 ml Output Total 1500 ml Balance -660 ml Laboratory Data 24H LABS Laboratory Tests 2 12/19/18 06:06: Nucleated Red Blood Cells % (auto) 0.0, Anion Gap 11, Glomerular Filtration Rate 22.9L, Blood Urea Nitrogen 57H, Creatinine 2.27H, Sodium Level 134L, Potassium Level 3.9, Chloride Level 104, Carbon Dioxide Level 19L, Calcium Level 8.6#L CBC/BMP Laboratory Tests 12/19/18 06:06 Red Blood Count 4.83, Mean Corpuscular Volume 82.0, Mean Corpuscular Hemoglobin 26.9 L, Mean Corpuscular Hemoglobin Concent 32.8, Red Cell Distribution Width 1 4.2, Calcium Level 8.6 #L Microbiology Microbiology 12/17/18 Gastrointestinal Tract Panel (PCR) - Final, Complete Norovirus GME ATTESTATION GME ATTESTATION My faculty preceptor for this patient encounter was physically present during the encounter and was fully available. All aspects of the patient interview, e xamination, medical decision making process, and medical care plan development were reviewed and approved by the faculty preceptor. The faculty preceptor is aware and concurs with the plan as stated in the body of this note and will attest to such by his/her cosignature. MACKENZIE PINZON DO Dec 19, 2018 12:47
[2018-12-19 14:00] VITALS: BP 137/66
[2018-12-19 22:00] VITALS: BP 139/62
[2018-12-19] MEDS: METOCLOPRAMIDE INJ 10MG/2ML VIAL (J2765) IV PRN (22:20)
[2018-12-20] MEDS: NS 1,000 ML IV SCH ×4 (05:49→23:52)
[2018-12-20] MEDS: ONDANSETRON 4MG/2ML VIAL (J2405) IV PRN ×3 (05:49→21:56)
[2018-12-20 06:00] VITALS: BP 148/67
[2018-12-20 06:56] LABS: HEMATOCRIT 33.4 % (36.0-47.0); MEAN CORPUSCULAR HEMOGLOBIN 26.9 pg (27.0-33.0); MEAN CORPUSCULAR VOLUME 83.9 fl (80.0-96.0); PLATELET COUNT, AUTOMATED 160 10^3/uL (150-450); RED BLOOD COUNT 3.98 10^6/uL (4.00-5.40)
[2018-12-20 07:12] LABS: HEMOGLOBIN 10.7 g/dl (12.0-15.5)
[2018-12-20 07:26] LABS: BLOOD UREA NITROGEN 29 MG/DL (7-18); CALCIUM LEVEL 7.7 MG/DL (8.8-10.2); CARBON DIOXIDE LEVEL 21 MEQ/L (21-32); CHLORIDE LEVEL 111 MEQ/L (98-107); CREATININE FOR GFR 0.98 MG/DL (0.55-1.30); GLOMERULAR FILTRATION RATE > 60.0 (>45); GLUCOSE, FASTING 135 MG/DL (70-100); POTASSIUM SERUM 3.7 MEQ/L (3.5-5.1); SODIUM LEVEL 141 MEQ/L (136-145)
[2018-12-20] MEDS: LACTOBACILLUS ACIDOPHILUS CAP (BACID) PO SCH ×2 (08:00→17:57)
[2018-12-20] MEDS: METOCLOPRAMIDE INJ 10MG/2ML VIAL (J2765) IV PRN (10:00)
--- NOTE | 2018-12-20 15:19 | IPNPDOC ---
Subjective Date Seen The patient was seen on 12/20/18. Subjective Chief Complaint/HPI diarrhea close to baseline, no vomit since admission Constitutional: Denies: Chills, Fever Eyes: Denies: Pain ENT: Denies: Head Aches Skin: Denies: Rash Pulmonary: Denies: Dyspnea, Cough Cardiovascular: Denies: Chest Pain, Palpitations Gastrointestinal: Reports: Nausea; Denies: Vomiting Objective Physical Examination General Exam: Positive: Alert, No Acute Distress ENT Exam: Negative: Mucous membr. moist/pink (bucal mucosa dry) Chest Exam: Negative: Clear to auscultation, Rales, Rhonchi, Wheezing Heart Exam: Positive: Rate Normal, Regular Rhythm Abdomen Exam: Positive: Normal bowel sounds, Soft; Negative: Tenderness Extremity Exam: Negative: Edema Skin Exam: Negative: Nl turgor and temperature (poor turgor) Assessment /Plan Problems (1) Acute kidney injury (nontraumatic) Status: Acute Response to Treatment: Worse Problem Text: 12/20/18 AKI3 resolved, 30/1.0, 3.7; AF since admission, WBC 7 (20K) (2) Norovirus Status: Acute Response to Treatment: Improving Problem Text: 12/19 Tolerating liquid diet. Advance to softs cont Zofran and Reglan prn. Cont clear liquid diet for now CT: Fluid throughout the bowel without dilation or significant bowel wall thickening. Mild stranding around the distal bowel, around what is likely a J-pouch, appears grossly unchanged and may be postoperative in nature or persistent mild inflammation. (3) Kidney lesion Problem Text: 12/17/18 CT AP: MPRESSION: 1. Fluid throughout the bowel without dilation or significant bowel wall thickening. Mild stranding around the distal bowel, around what is likely a J-pouch, appears grossly unchanged and may be postoperative in nature or persistent mild inflammation. 2. No free air or free fluid. 3. Hepatomegaly, a nodular surface of the liver, and mild splenomegaly, unchanged. 4. Several hyperdense lesions in the right kidney, which may be hyperdense cysts but are not fully assessed on this exam. As there is increase in size of one lesion in the upper pole of the right kidney, consider further evaluation with MRI or multiphasic CT scan. (4) Hepatomegaly Problem Text: CT: Hepatomegaly, a nodular surface of the liver, and mild splenomegaly, unchanged. Will need further workup and f/u as outpatient (5) H/O colectomy Status: Chronic Problem Text: sp total colectomy c 2 chronic diarrhea on chronic Imod ium/Lomitil held 2 infection (6) Hypotension Status: Chronic Response to Treatment: Stable Problem Text: c tachycardia stable off HD atenolol 25 QD prn Plan/VTE VTE Prophylaxis Ordered?: Yes (TEDS/Sequentials - No heparin due to Allergy per allergy list) VTE Exclusion Pharmacological: History of Drug Allergy VS, I&O, 24H, Fishbone Vital Signs/I&O Vital Signs Date Time Temp Pulse Resp B/P (MAP) Pulse Ox O2 Delivery O2 Flow Rate FiO2 12/20/18 06:00 98.5 94 18 148/67 (94) 97 12/17/18 13:32 Room Air I&O- Last 24 Hours up to 6 AM 12/20/18 06:00 Intake Total 2520 ml Output Total 4300 ml Balance -1780 ml Laboratory Data 24H LABS Laboratory Tests 2 12/20/18 06:27: Nucleated Red Blood Cells % (auto) 0.0, Anion Gap 9, Glomerular Filtration Rate > 60.0, Blood Urea Nitrogen 29H, Creatinine 0.98#, Sodium Level 141#, Potassium Level 3.7, Chloride Level 111H, Carbon Dioxide Level 21, Calcium Level 7.7L CBC/BMP Laboratory Tests 12/20/18 06:27 Red Blood Count 3.98 L, Mean Corpuscular Volume 83.9, Mean Corpuscular Hemoglobin 26.9 L, Mean Corpuscular Hemoglobin Concent 32.0, Red Cell Distribution Width 14.1, Calcium Level 7.7 L Microbiology Microbiology 12/17/18 Gastrointestinal Tract Panel (PCR) - Final, Complete Norovirus Vu Paula M.D. Dec 20, 2018 15:19
[2018-12-20 22:00] VITALS: BP 142/66
[2018-12-21 06:00] VITALS: BP 150/67
[2018-12-21] MEDS: LACTOBACILLUS ACIDOPHILUS CAP (BACID) PO SCH (08:00)
[2018-12-21 08:11] LABS: BLOOD UREA NITROGEN 13 MG/DL (7-18); CALCIUM LEVEL 7.5 MG/DL (8.8-10.2); CARBON DIOXIDE LEVEL 20 MEQ/L (21-32); CHLORIDE LEVEL 114 MEQ/L (98-107); CREATININE FOR GFR 0.78 MG/DL (0.55-1.30); GLOMERULAR FILTRATION RATE > 60.0 (>45); GLUCOSE, FASTING 120 MG/DL (70-100); SODIUM LEVEL 144 MEQ/L (136-145)
[2018-12-21 08:38] LABS: HEMATOCRIT 29.1 % (36.0-47.0); HEMOGLOBIN 9.4 g/dl (12.0-15.5); MEAN CORPUSCULAR HEMOGLOBIN 27.4 pg (27.0-33.0); MEAN CORPUSCULAR HGB CONC 32.3 g/dl (32.0-36.5); MEAN CORPUSCULAR VOLUME 84.8 fl (80.0-96.0); PLATELET COUNT, AUTOMATED 102 10^3/uL (150-450); RED BLOOD COUNT 3.43 10^6/uL (4.00-5.40); WHITE BLOOD COUNT 4.6 10^3/uL (4.0-10.0)
[2018-12-21] MEDS ORDERED: POTASSIUM CHLORIDE 10 MEQ SR TABLET PO ONE (09:30)
[2018-12-21] MEDS ORDERED: ZOFR4TAB16 PO (10:32)
--- NOTE | 2018-12-21 14:54 | DS.PDOC ---
Discharge Summary General Date of Admission Dec 17, 2018 at 11:33 Date of Discharge 12/21/18 Primary Care Physician: Carly Nava MD Attending Physician: Carly Nava MD Discharge Summary PROCEDURES PERFORMED DURING STAY: [None]. ADMITTING/DISCHARGE DIAGNOSES: #. Viral gastroenteritis (norovirus) #. Right kidney lesion #. hx of recent total colectomy #. Hypertension #. Hypercholesterolemia #. Insulin Resistance #. GERD #. Gout COMPLICATIONS/CHIEF COMPLAINT: Gastroenteritis. HISTORY OF PRESENT ILLNESS: Patient is a 68 year old female with past medical history significant for total colectomy with ileal J pouch presents with nausea, vomiting, and diarrhea. Patient says it all started around 2 AM this morning. She woke up nauseated and vomited several times. A few hours later she began to have liquid watery stools, several times. Also has some abdominal discomfort but not pain. Points to pain in center of abdomen. She had her Colectomy about a month ago. Has been on immodium for diarrhea. Denies fevers, chills, night sweats. No unusual foods. Denies nsaid use, recent alcohol use. Has a sip of wine every now and then. HOSPITAL COURSE: On day 1 of hospital stay patient had mild clinical improvements but lab work showed an MOIRA that was thought to likely be secondary to dehydration and possibly from IV contrast the patient received from imaging. Over the next 2 days her diet was slowly advanced as her diarrhea continued to improved she was tolerating clear liquids by day 2 and so was advanced to a soft diet. By day 3 her diarrhea was back to baseline and she had not had any emesis since admission and her MOIRA had resolved. On imaging done in the emergency department a lesion was found in the right upper pole of the kidney that warranted further evaluation with either MRI or multiphasic CT scan. Patient did not want to wait around for scan as she was perfectly fine to be discharged home and continue her recovery there. She stated she would do the MRI on an outpatient basis and a close follow-up with her primary care provider. DISCHARGE MEDICATIONS: Please see below. ALLERGIES: Please see below. PHYSICAL EXAMINATION ON DISCHARGE: VITAL SIGNS: Please see below. GENERAL: Alert, oriented, no acute distress HEENT: Head is normocephalic, atraumatic. EOMI. NECK: Supple CARDIOVASCULAR EXAMINATION: RRR. Normal S1-S2. RESPIRATORY EXAMINATION: CTAB with full breath sounds bilaterally. No wheezes, crackles, rhonchi. ABDOMINAL EXAMINATION: Soft, nontender, nondistended. Positive bowel sounds. EXTREMITIES: No lower extremity cyanosis, clubbing, edema. SKIN: No lesions. Skin is intact. Normal skin turgor and temperature NEUROLOGICAL EXAMINATION: Alert and oriented cranial nerves III through XII grossly intact. PSYCHIATRIC EXAMINATION: Mood normal LABORATORY DATA: Please see below. IMAGING: Abdomen/Pelvis CT 1. Fluid throughout the bowel without dilation or significant bowel wall thickening. Mild stranding around the distal bowel, around what is likely a J-pouch, appears grossly unchanged and may be postoperative in nature or persistent mild inflammation. 2. No free air or free fluid. 3. Hepatomegaly, a nodular surface of the liver, and mild splenomegaly, unchanged. 4. Several hyperdense lesions in the right kidney, which may be hyperdense cysts but are not fully assessed on this exam. As there is increase in size of one lesion in the upper pole of the right kidney, consider further evaluation with MRI or multiphasic CT scan. PROGNOSIS: good ACTIVITY: [As tolerated]. DIET: As tolerated DISCHARGE PLAN: Discharge home with follow-up scheduled DISPOSITION: Home, Self-Care. DISCHARGE INSTRUCTIONS: 1. Please follow-up with Dr. Nava in the next week ITEMS TO FOLLOWUP ON ON OUTPATIENT: 1. Plan for abdominal MRI with contrast within the next 2 weeks DISCHARGE CONDITION: [Stable]. TIME SPENT ON DISCHARGE: Greater than 30 minutes. Vital Signs/I&Os Vital Signs Date Time Temp Pulse Resp B/P (MAP) Pulse Ox O2 Delivery O2 Flow Rate FiO2 12/21/18 06:00 98.2 87 18 150/67 (94) 96 12/17/18 13:32 Room Air I&O- Last 24 Hours up to 6 AM 12/21/18 05:59 Intake Total 3040 ml Balance 3040 ml Laboratory Data Labs 24H Laboratory Tests 2 12/21/18 07:26: Nucleated Red Blood Cells % (auto) 0.0, Anion Gap 10, Glomerular Filtration Rate > 60.0, Blood Urea Nitrogen 13#, Creatinine 0.78, Sodium Level 144, Potassium Level 3.0L, Chloride Level 114H, Carbon Dioxide Level 20L, Calcium Level 7.5L CBC/BMP Laboratory Tests 12/21/18 07:26 Red Blood Count 3.43 L, Mean Corpuscular Volume 84.8, Mean Corpuscular Hemoglobin 27.4, Mean Corpuscular Hemoglobin Concent 32.3, Red Cell Distribution Width 14.2, Calcium Level 7.5 L Microbiology Microbiology 12/17/18 Gastrointestinal Tract Panel (PCR) - Final, Complete Norovirus Discharge Medications Scheduled Ondansetron HCl (Zofran) 4 Mg Tab, 4 MG PO Q6H Scheduled PRN Atenolol (Atenolol) 25 Mg Tab, 25 MG PO ASDIRECTED PRN for INCREASED HR, (Reported) TAKES IF HR IS >100 Ondansetron HCl (Ondansetron HCl) 4 Mg Tab, 4 MG PO QID PRN for NAUSEA OR VOMITING, (Reported) Allergies Coded Allergies: Heparin (Verified Allergy, Severe, 12/17/18) HIVES Penicillins (Verified Allergy, Mild, HIVES, 01/18/13) Penicillins Cross Reactors (Verified Allergy, Mild, HIVES, 01/18/13) Cetirizine (Verified Allergy, Unknown, HIVES, 08/19/17) Tetanus Toxoid (Unverified Adverse Reaction, Intermediate, SWOLLEN ARM AND VERY RED, 01/18/13) Tramadol (Unverified Adverse Reaction, Mild, N/V LOW BP, 08/19/17) Codeine (Verified Adverse Reaction, Unknown, GI upset, 08/19/17) GME ATTESTATION GME ATTESTATION My faculty preceptor for this patient encounter was physically present during the encounter and was fully available. All aspects of the patient interview, examination, medical decision making process, and medical care plan development were reviewed and approved by the faculty preceptor. The faculty preceptor is aware and concurs with the plan as stated in the body of this note and will attest to such by his/her cosignature. CARLY THURMAN DO Dec 21, 2018 14:54
== END 2018-12-21 10:30 | disposition home or self-care (01) | DRG 392 ==
LOC: M ED 04:07 → EDBD 04:07 → M ED INP 11:33 → M MS5PR 13:45
PROVIDERS: ADMIT Family Medicine; ATTEND Family Medicine
DX: A08.11 Acute gastroenteropathy due to Norwalk agent (principal); N17.9 Acute kidney failure, unspecified; I12.9 Hypertensive chronic kidney disease with stage 1 through stage 4 chronic kidney disease, or unspecified chronic kidney disease; E78.00 Pure hypercholesterolemia, unspecified; E11.9 Type 2 diabetes mellitus without complications; K21.9 Gastro-esophageal reflux disease without esophagitis; M10.9 Gout, unspecified; N18.3 Chronic kidney disease, stage 3 (moderate); N28.89 Other specified disorders of kidney and ureter; E86.0 Dehydration; Z90.49 Acquired absence of other specified parts of digestive tract; Z87.891 Personal history of nicotine dependence; Z79.899 Other long term (current) drug therapy; Z88.0 Allergy status to penicillin; Z88.7 Allergy status to serum and vaccine; Z88.5 Allergy status to narcotic agent; Z88.8 Allergy status to other drugs, medicaments and biological substances

== ENCOUNTER → 2018-12-29 | Outpatient (CLI) | payer MEDICARE ==
[~2018-12-29] MED LIST changes: +ATEN25TA PO; +DIPH2.5T14 PO; +ONDA4TAB5 PO
--- NOTE | 2018-12-29 17:13 | REP ---
RENAL ULTRASOUND: 12/29/2018. Clinical history: Multiple cysts and one hyperdense cyst on CT right kidney. An exophytic cyst left kidney. Please evaluate for renal mass. Comparison: CT 12/17/2018, 08/25/2017. Findings: Sonographic evaluation shows the right kidney at 12 x 3.9 x 2.4 cm. Left kidney is 12.7 x 3.5 x 3.2 cm. Cortical echogenicity is normal. Some cortical thinning is seen on the right compared to the left. There are multiple cysts in the right kidney. Medially is a 1.7 x 1.5 cm simple cyst and inferiorly a 1.5 x 1.4 x 0.8 cm cortical cyst. The partially exophytic cyst interpolar region on the right side is 1.5 x 1.3 cm. This is the hyperdense focus on CT, but it has simple cyst characteristics by ultrasound. The left kidney shows a lower pole 1.3 x 1.2 x 1.1 cm exophytic cyst. No solid mass or hydronephrosis. No perinephric fluid. The bladder is not well distended and cannot be evaluated. It measured only 2.8 x 2.7 x 2.5 cm. Impression: 1. There are multiple cysts involving the kidneys, three on the right, one on the left. All of these have characteristics of simple cyst, no solid mass or complex cyst identified. No hydronephrosis, stone or perinephric fluid. Bladder cannot be evaluated as it was nearly empty for this examination. Electronically Signed by Niraj Thomas MD 12/29/2018 08:51 P
== END ==
LOC: M RAD 15:24
PROVIDERS: ATTEND Family Medicine
DX: N28.1 Cyst of kidney, acquired (principal)

== ENCOUNTER 2019-03-12 09:18 | Day surgery (SDC) | payer MEDICARE ==
[~2019-03-12] VITALS: Ht 160 cm; Wt 69.9 kg
[~2019-03-12 09:18] MED LIST changes: +ASPI-255 PO; -ASPI325T25 PO; +NS 1,000 ML IV ONE
[2019-03-12] MEDS ORDERED: DICY10CA13 PO (10:01)
[2019-03-12] MEDS ORDERED: LIDOCAINE 2% INJ 100 MG/5 ML SDV (FOR ANES.) As Ordered ONE (10:47)
[2019-03-12] MEDS ORDERED: fentaNYL 100 MCG/2 ML INJECTION (J3010) As Ordered ONE (10:47)
[2019-03-12] MEDS ORDERED: PROPOFOL 500 MG/50 ML VIAL As Ordered ONE (10:47)
--- NOTE | 2019-03-12 11:09 | ROOR ---
Patient Name: Latoya Rodriguez Procedure Date: 03/12/2019 10:43 AM Date of : 1950 Age: 68 Room: [facility] Gender: Female Note Status: Finalized Procedure: Upper GI endoscopy Indications: Surveillance for malignancy due to personal history of Familial Adenomatous Polyposis, Cirrhosis rule out esophageal varices Providers: Harjeet MATHEWS MD Referring MD: Braeden Nava MD Requesting Provider: Medicines: Monitored Anesthesia Care Complications: No immediate complications. Procedure: Pre-Anesthesia Assessment: - The heart rate, respiratory rate, oxygen saturations, blood pressure, adequacy of pulmonary ventilation, and response to care were monitored throughout the procedure. The Endoscope was introduced through the mouth, and advanced to the second part of duodenum. The upper GI endoscopy was accomplished without difficulty. The patient tolerated the procedure well. Findings: Grade I varices were found in the lower third of the esophagus. They were small in size. (Varices are small today, primary prevention/eradication not indicated today) A single 4 mm mucosal nodule was found at the cricopharyngeus. Biopsies were taken with a cold forceps for histology. The entire examined stomach was normal. The examined duodenum was normal. The area of the papilla was normal. Impression: - Grade I esophageal varices. They were small in size. (Varices are small today, primary prevention/eradication not indicated today) - Mucosal nodule found in the esophagus. Biopsied. - Normal stomach. - Normal examined duodenum. - Normal area of the papilla-evaluated via side view scope. Recommendation: - Telephone endoscopist for pathology results in 2 weeks. - Repeat upper endoscopy in 3 years for FAP surveillance. Harjeet Mathews MD Harjeet MATHEWS MD 03/12/2019 11:09:05 AM Electronically signed by Harjeet MATHEWS MD Number of Addenda: 0 Note Initiated On: 03/12/2019 10:43 AM Estimated Blood Loss: Estimated blood loss: none.
--- NOTE | 2019-03-12 11:30 | ROOR ---
Patient Name: Latoya Rodriguez Procedure Date: 03/12/2019 10:43 AM Date of : 1950 Age: 68 Room: [facility] Gender: Female Note Status: Finalized Procedure: Flexible Sigmoidoscopy Indications: Clinically significant diarrhea of unexplained origin, Post-operative assessment Providers: Harjeet MATHEWS MD Referring MD: Braeden Nava MD Requesting Provider: Medicines: Monitored Anesthesia Care Complications: No immediate complications. Procedure: Pre-Anesthesia Assessment: - The heart rate, respiratory rate, oxygen saturations, blood pressure, adequacy of pulmonary ventilation, and response to care were monitored throughout the procedure. The Endoscope was introduced through the anus and advanced to 30 cm from the anal verge. The flexible sigmoidoscopy was accomplished without difficulty. The patient tolerated the procedure well. The quality of the bowel preparation was good. Findings: The perianal and digital rectal examinations were normal. There was evidence of a prior ileal pouch-anal anastomosis at the anus. This was patent and was characterized by erosion and an intact appearance. The anastomosis was traversed. This was biopsied with a cold forceps for histology. Impression: - The continence pouch is overall normal and free of overt inflammation, but is judged to be probably fairly small in capacity/volume. - Patent ileal pouch-anal anastomosis, characterized by shallow erosion and an intact appearance. Biopsied. - The mucosa of the pouch and ileum is normal in appearance. Random biopsies taken. Recommendation: Stop Cipro and stop Flagyl. Use Questran 4 gm 3-4 times a day. Use Imodium 2 tabs twice a day. Use Fiber supplement. Harjeet Mathews MD Harjeet MATHEWS MD 03/12/2019 11:30:36 AM Electronically signed by Harjeet MATHEWS MD Number of Addenda: 0 Note Initiated On: 03/12/2019 10:43 AM Estimated Blood Loss: Estimated blood loss: none.
[2019-03-12 11:40] VITALS: BP 130/59
== END 2019-03-12 12:42 | disposition home or self-care (01) ==
LOC: M OPP 09:18
PROVIDERS: ATTEND Internal Medicine Gastroenterology
DX: K74.60 Unspecified cirrhosis of liver (principal); I85.10 Secondary esophageal varices without bleeding; K22.8 Other specified diseases of esophagus; R19.7 Diarrhea, unspecified; Z98.0 Intestinal bypass and anastomosis status; Z86.010 Personal history of colon polyps
CPT/HCPCS: 43239; 45331; 88305; 88341; 88342; J3010

== ENCOUNTER → 2019-05-18 | Outpatient (REF) | payer MEDICARE ==
[~2019-05-18] MED LIST changes: +DICY10CA13 PO; -NS 1,000 ML IV ONE
[2019-05-18 11:44] LABS: HEMATOCRIT 36.2 % (36.0-47.0); HEMOGLOBIN 11.2 g/dl (12.0-15.5); MEAN CORPUSCULAR HEMOGLOBIN 27.5 pg (27.0-33.0); MEAN CORPUSCULAR HGB CONC 30.9 g/dl (32.0-36.5); MEAN CORPUSCULAR VOLUME 88.9 fl (80.0-96.0); PLATELET COUNT, AUTOMATED 116 10^3/uL (150-450); RED BLOOD COUNT 4.07 10^6/uL (4.00-5.40); WHITE BLOOD COUNT 5.2 10^3/uL (4.0-10.0)
[2019-05-18 12:10] LABS: ALBUMIN 3.9 GM/DL (3.2-5.2); ALT/SGPT 25 U/L (12-78); BILIRUBIN,TOTAL 0.4 MG/DL (0.2-1.0); BLOOD UREA NITROGEN 16 MG/DL (7-18); CALCIUM LEVEL 9.4 MG/DL (8.8-10.2); CARBON DIOXIDE LEVEL 26 MEQ/L (21-32); CHLORIDE LEVEL 110 MEQ/L (98-107); CHOLESTEROL LEVEL 246 MG/DL (<200); CHOLESTEROL RISK RATIO 3.784 (<5); CREATININE FOR GFR 0.98 MG/DL (0.55-1.30); GLOMERULAR FILTRATION RATE > 60.0 (>45); GLUCOSE, FASTING 118 MG/DL (70-100); HDL CHOLESTEROL 65 MG/DL (>40); IRON (FE) 39 UG/DL (50-170); LDL CHOLESTEROL 153 MG/DL (<100); NON-HDL-C 181 MG/DL; PERCENT SATURATION 8.2 % (13.2-45.0); POTASSIUM SERUM 4.6 MEQ/L (3.5-5.1); SODIUM LEVEL 143 MEQ/L (136-145); TOTAL IRON BINDING CAPACITY 474 UG/DL (250-450); TOTAL PROTEIN 7.6 GM/DL (6.4-8.2); TRIGLYCERIDES LEVEL 139 MG/DL (<150)
[2019-05-18 12:49] LABS: HEMOGLOBIN A1c 6.7 %
== END ==
LOC: M SFHCCLAY 08:23
PROVIDERS: ATTEND Family Medicine
DX: D3A.00 Benign carcinoid tumor of unspecified site (principal); I85.10 Secondary esophageal varices without bleeding; E11.9 Type 2 diabetes mellitus without complications; D12.6 Benign neoplasm of colon, unspecified; C7B.00 Secondary carcinoid tumors, unspecified site

== ENCOUNTER → 2019-09-19 | Outpatient (REF) | payer MEDICARE ==
[~2019-09-19] MED LIST changes: +METF-791 PO; -METF500T4 PO
== END ==
LOC: M LAB REF 12:59
PROVIDERS: ATTEND Internal Medicine Gastroenterology
DX: K59.4 Anal spasm (principal)

== ENCOUNTER → 2019-09-20 | Outpatient (REF) | payer MEDICARE ==
[2019-09-20 18:05] LABS: TOTAL PROTEIN 7.8 GM/DL (6.4-8.2)
[2019-09-21 10:58] LABS: ALBUMIN 4.39 GM/DL (3.29-5.55); ALBUMIN % 56.3 % (55.8-66.1); ALPHA-1-GLOBULIN % 3.1 % (2.9-4.9); ALPHA-1-GLOBULINS 0.24 GM/DL (0.17-0.41); ALPHA-2-GLOBULINS 0.81 GM/DL (0.42-0.99); ALPHA-2-GLOBULINS % 10.4 % (7.1-11.8); BETA-1-GLOBULINS % 8.5 % (4.7-7.2); BETA-2-GLOBULINS % 6.3 % (3.2-6.5); GAMMA GLOBULIN % 15.4 % (11.1-18.8)
[2019-09-21 10:59] LABS: BETA-1-GLOBULINS 0.66 GM/DL (0.28-0.60); BETA-2-GLOBULINS 0.49 GM/DL (0.19-0.55)
== END ==
LOC: M SFHCCLAY 11:32
PROVIDERS: ATTEND Family Medicine
DX: H34.8122 Central retinal vein occlusion, left eye, stable (principal); Z79.899 Other long term (current) drug therapy

== ENCOUNTER → 2019-09-20 | Outpatient (REF) | payer MEDICARE ==
[2019-09-20 18:05] LABS: ALBUMIN 3.9 GM/DL (3.2-5.2); BILIRUBIN,DIRECT 0.2 MG/DL (0.0-0.2); BILIRUBIN,TOTAL 0.3 MG/DL (0.2-1.0); TOTAL PROTEIN 7.9 GM/DL (6.4-8.2)
== END ==
LOC: M LABDRAWC 16:02
PROVIDERS: ATTEND Internal Medicine Gastroenterology
DX: K74.60 Unspecified cirrhosis of liver (principal); K59.4 Anal spasm; R19.7 Diarrhea, unspecified

== ENCOUNTER → 2019-09-27 | Outpatient (CLI) | payer MEDICARE ==
[~2019-09-27] MED LIST changes: +E-Z-HD 98% w/w 340GM SUSP BTL As Ordered ONE; +E-Z-PAQUE 96% w/w SUSP 176GM BTL As Ordered ONE
--- NOTE | 2019-09-27 09:43 | REP ---
RIGHT UPPER QUADRANT ULTRASOUND: Real-time sonographic evaluation of the right upper quadrant performed. The patient has had a prior cholecystectomy. Common bile duct measures 9 mm. Liver is enlarged measuring approximately 21.1 cm in the midclavicular line. The surface is microlobulated. Main portal vein measures 17 mm, which is mildly dilated and suggests portal hypertension. No gross liver mass is seen. Pancreas demonstrates no gross mass. Right kidney measures 10.8 cm in length with no hydronephrosis. There is cortical thinning. There are cysts seen in the right kidney, medially 1.4 cm maximally, laterally in the mid aspect 1.8 cm and in the lower pole 1.2 cm. Visualized abdominal aorta is normal in caliber. No ascites is seen. IMPRESSION: Status post cholecystectomy. Common bile duct 9 mm, which is expected in a patient status post cholecystectomy. Mild hepatomegaly with microlobulated margins. Findings may indicate cirrhosis. Mildly dilated main portal vein suggest portal hypertension. No gross liver mass. Electronically Signed by Guillermo Rendon MD 09/27/2019 03:48 P
--- NOTE | 2019-09-27 18:05 | REP ---
Small bowel follow-through The procedure was performed under the direct supervision of Dr. Gray. The images were reviewed with Dr. Gray. The core feeder film shows no organomegaly or pathological masses. The intestinal gas pattern is nonspecific. There are vascular calcifications identified. There are bowel sutures in the pelvis consistent with the patient's history of complete colectomy with ileoanal anastomosis. Liquid barium was administered and the barium column was followed through the small bowel to the level of the terminal ileum. Small bowel transit time is approximately 90 minutes . During fluoroscopy gentle palpation shows all loops are freely movable and pliable. There are no fixed or angulated loops. The small bowel mucosal pattern is normal in course and caliber. There is no transition to suggest a partial small bowel obstruction. The ileal anal anastomosis is widely patent with no evidence of stricture or obstruction. Impression: Postsurgical changes consistent with the patient's history of ileoanal anastomosis. There is no evidence of stricture or obstruction at the anastomosis. 1.5 minutes of fluoro time was utilized for this procedure. Electronically Signed by REGAN Chaves 09/27/2019 04:54 P Electronically Signed by Kashif Gray MD 09/27/2019 05:57 P
== END ==
LOC: M RAD 08:13
PROVIDERS: ATTEND Internal Medicine Gastroenterology
DX: K74.60 Unspecified cirrhosis of liver (principal); Z98.0 Intestinal bypass and anastomosis status; Z90.49 Acquired absence of other specified parts of digestive tract

== ENCOUNTER 2019-11-26 06:39 | Day surgery (SDC) | payer MEDICARE ==
[~2019-11-26] VITALS: Ht 160 cm; Wt 77.1 kg
[~2019-11-26 06:39] MED LIST changes: +ACET-683 PO; +ACET1TAB55 PO; +CVS500CA5 PO; +DICY20TA11 PO; -E-Z-HD 98% w/w 340GM SUSP BTL As Ordered ONE; -E-Z-PAQUE 96% w/w SUSP 176GM BTL As Ordered ONE; +HYOS125TA PO; +LOPE-39 PO; +MICR1TAB5 PO; +ONDA-83 PO; -ONDA4TAB5 PO; +PEPC1TAB5 PO; +PROBCAP14 PO
[2019-11-26] MEDS ORDERED: fentaNYL 100 MCG/2 ML INJECTION (J3010) As Ordered ONE (06:42)
[2019-11-26] MEDS ORDERED: propofoL 200 MG/20 ML VIAL As Ordered ONE (06:43)
[2019-11-26] MEDS ORDERED: LIDOCAINE 2% INJ 100 MG/5 ML SDV (FOR ANES.) As Ordered ONE (06:43)
[2019-11-26] MEDS ORDERED: NS 1,000 ML IV ONE (07:00)
--- NOTE | 2019-11-26 07:59 | ROOR ---
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 Providers: Harjeet MATHEWS MD Referring MD: Braeden Nava MD Requesting Provider: Medicines: Monitored Anesthesia Care Complications: No immediate complications. Procedure: Pre-Anesthesia Assessment: - The heart rate, respiratory rate, oxygen saturations, blood pressure, adequacy of pulmonary ventilation, and response to care were monitored throughout the procedure. The Endoscope was introduced through the mouth, and advanced to the second part of duodenum. The upper GI endoscopy was accomplished without difficulty. The patient tolerated the procedure well. Findings: The examined esophagus was normal. (small mucosal scar seen in the proximal esophagus--no residual carcinoid seen today) The entire examined stomach was normal. The examined duodenum was normal. Impression: - Normal esophagus. (small mucosal scar seen in the proximal esophagus--no residual carcinoid seen today) - Normal stomach. - Normal examined duodenum. - No specimens collected. - No esophageal or gastric varices seen today - No residual esophageal carcinoid seen today. Recommendation: - Observe patient's clinical course. - Repeat upper endoscopy in 1 year for surveillance. Harjeet Mathews MD Harjeet MATHEWS MD 11/26/2019 7:58:52 AM Electronically signed by Harjeet MATHEWS MD Number of Addenda: 0 Note Initiated On: 11/26/2019 7:40 AM Estimated Blood Loss: Estimated blood loss: none.
--- NOTE | 2019-11-26 08:17 | ROOR ---
Patient Name: Latoya Rodriguez Procedure Date: 11/26/2019 7:41 AM Date of : 1950 Age: 69 Room: [facility] Gender: Female Note Status: Finalized Procedure: Flexible Sigmoidoscopy Indications: High risk colon cancer surveillance: Personal history of familial adenomatous polyposis Providers: Harjeet MATHEWS MD Referring MD: Braeden Nava MD Requesting Provider: Medicines: Monitored Anesthesia Care Complications: No immediate complications. Procedure: Pre-Anesthesia Assessment: - The heart rate, respiratory rate, oxygen saturations, blood pressure, adequacy of pulmonary ventilation, and response to care were monitored throughout the procedure. The Colonoscope was introduced through the anus and advanced to the ileo-rectal anastomosis. The flexible sigmoidoscopy was accomplished without difficulty. The patient tolerated the procedure well. The quality of the bowel preparation was good. Findings: Ileoanal anastomosis is intact and normal in appearance. Mucosa of pouch/reservoir is normal. Biopsies taken Shallow anastomotic erosion is noted.Biopsied. More proximal small bowel up to 45 cm is normal. Impression: - Ileoanal anastomosis is intact and normal in appearance. - Mucosa of pouch/reservoir is normal, free of visible inflammation. Biopsies taken. - A shallow anastomotic erosion is noted at proximal suture line. Biopsied. - More proximal small bowel up to 45 cm is normal. Recommendation: - Continue present medications. - Repeat flexible sigmoidoscopy in 1.5 years for surveillance. Harjeet Mathews MD Harjeet MATHEWS MD 11/26/2019 8:16:47 AM Electronically signed by Harjeet MATHEWS MD Number of Addenda: 0 Note Initiated On: 11/26/2019 7:41 AM Estimated Blood Loss: Estimated blood loss: none. Estimated blood loss: none.
[2019-11-26 08:40] VITALS: BP 131/60
== END 2019-11-26 08:46 | disposition home or self-care (01) ==
LOC: M OPP 06:39
PROVIDERS: ATTEND Internal Medicine Gastroenterology
DX: K74.60 Unspecified cirrhosis of liver (principal); Z86.010 Personal history of colon polyps; Z80.0 Family history of malignant neoplasm of digestive organs; Z85.01 Personal history of malignant neoplasm of esophagus; R19.7 Diarrhea, unspecified; K62.89 Other specified diseases of anus and rectum; Z79.82 Long term (current) use of aspirin; Z79.899 Other long term (current) drug therapy; Z88.0 Allergy status to penicillin; Z88.2 Allergy status to sulfonamides; Z88.5 Allergy status to narcotic agent; Z88.7 Allergy status to serum and vaccine; Z88.8 Allergy status to other drugs, medicaments and biological substances; Z87.891 Personal history of nicotine dependence; Z91.89 Other specified personal risk factors, not elsewhere classified
CPT/HCPCS: 43235; 45380; 88305; J3010

== ENCOUNTER → 2020-03-29 | Outpatient (REF) | payer MEDICARE ==
[~2020-03-29] MED LIST changes: -METF-791 PO; +METF-838 PO
[2020-03-29 12:36] LABS: ALBUMIN 3.6 GM/DL (3.2-5.2); ALT/SGPT 20 U/L (12-78); BILIRUBIN,TOTAL 0.6 MG/DL (0.2-1.0); BLOOD UREA NITROGEN 13 MG/DL (7-18); CARBON DIOXIDE LEVEL 24 MEQ/L (21-32); CHLORIDE LEVEL 111 MEQ/L (98-107); CHOLESTEROL LEVEL 200 MG/DL (<200); CHOLESTEROL RISK RATIO 3.636 (<5); CREATININE FOR GFR 0.91 MG/DL (0.55-1.30); GLOMERULAR FILTRATION RATE > 60.0 (>45); GLUCOSE, FASTING 130 MG/DL (70-100); HDL CHOLESTEROL 55 MG/DL (>40); LDL CHOLESTEROL 120 MG/DL (<100); NON-HDL-C 145 MG/DL; POTASSIUM SERUM 4.3 MEQ/L (3.5-5.1); SODIUM LEVEL 142 MEQ/L (136-145); TOTAL PROTEIN 7.5 GM/DL (6.4-8.2); TRIGLYCERIDES LEVEL 123 MG/DL (<150)
[2020-03-29 13:26] LABS: HEMOGLOBIN A1c 7.2 %
== END ==
LOC: M SFHCCLAY 08:30
PROVIDERS: ATTEND Family Medicine
DX: E11.9 Type 2 diabetes mellitus without complications (principal)

== ENCOUNTER → 2020-09-04 | Outpatient (CLI) | payer MEDICARE ==
[2020-09-04 15:58] LABS: BLOOD UREA NITROGEN 14 MG/DL (7-18); CALCIUM LEVEL 9.6 MG/DL (8.8-10.2); CARBON DIOXIDE LEVEL 22 MEQ/L (21-32); CHLORIDE LEVEL 111 MEQ/L (98-107); CREATININE FOR GFR 0.96 MG/DL (0.55-1.30); GLOMERULAR FILTRATION RATE > 60.0 (>45); GLUCOSE, FASTING 96 MG/DL (70-100); POTASSIUM SERUM 5.4 MEQ/L (3.5-5.1); SODIUM LEVEL 139 MEQ/L (136-145)
--- NOTE | 2020-09-04 23:57 | ECGEPIP ---
[facility] Test Date: 2020-09-04 Pat Name: SHERWIN AGUILA Department: Room: - Gender: Female Tube Blower: : 1950 Requested By: Niraj Reynolds Order Number: [id number] Reading MD: Dangelo Soto Measurements Intervals Converse Rate: 87 P: 46 TN: 136 QRS: 31 QRSD: 87 T: 44 QT: 367 QTc: 443 Interpretive Statements SINUS RHYTHM PRIOR ON 12/17/18 AT 4:27, NO SIGNIFICANT CHANGES Electronically Signed on 09-04-2020 23:57:05 EST by Dangelo Soto
== END ==
LOC: M LAB 14:59
PROVIDERS: ATTEND Ophthalmology Retina Specialist
DX: Z01.812 Encounter for preprocedural laboratory examination (principal); Z20.828 Contact with and (suspected) exposure to other viral communicable diseases

== ENCOUNTER → 2020-09-07 | Outpatient (CLI) | payer MEDICARE | LOC: M LABSMTC 10:03 | PROVIDERS: ATTEND Ophthalmology Retina Specialist | DX: Z20.828 Contact with and (suspected) exposure to other viral communicable diseases (principal) ==

== ENCOUNTER → 2020-11-17 | Outpatient (REF) | payer MEDICARE ==
[2020-11-17 16:01] LABS: HEMOGLOBIN 8.4 g/dl (12.0-15.5); MEAN CORPUSCULAR HEMOGLOBIN 21.4 pg (27.0-33.0); PLATELET COUNT, AUTOMATED 140 10^3/uL (150-450); RED BLOOD COUNT 3.92 10^6/uL (4.00-5.40); WHITE BLOOD COUNT 5.1 10^3/uL (4.0-10.0)
[2020-11-17 16:46] LABS: ALBUMIN 3.5 GM/DL (3.2-5.2); BILIRUBIN,TOTAL 0.3 MG/DL (0.2-1.0); CALCIUM LEVEL 9.4 MG/DL (8.8-10.2); CREATININE FOR GFR 1.04 MG/DL (0.55-1.30); GLOMERULAR FILTRATION RATE 56.1 (>45); POTASSIUM SERUM 4.8 MEQ/L (3.5-5.1); THYROID STIMULATING HORMONE 1.11 uIU/ML (0.358-3.740); TOTAL PROTEIN 7.5 GM/DL (6.4-8.2)
[2020-11-17 16:51] LABS: HEMOGLOBIN A1c 8.8 %
== END ==
LOC: M SFHCCLAY 13:54
PROVIDERS: ATTEND Family Medicine
DX: K74.60 Unspecified cirrhosis of liver (principal); I10 Essential (primary) hypertension; E11.9 Type 2 diabetes mellitus without complications
CPT/HCPCS: 80053; 82140; 82728; 83036; 83550; 84439; 84443; 85027; G0463

== ENCOUNTER → 2021-03-13 | Outpatient (REF) | payer MEDICARE ==
[2021-03-14 11:37] LABS: HEMATOCRIT 35.6 % (36.0-47.0); MEAN CORPUSCULAR HEMOGLOBIN 28.1 pg (27.0-33.0); MEAN CORPUSCULAR HGB CONC 30.9 g/dl (32.0-36.5); PLATELET COUNT, AUTOMATED 130 10^3/uL (150-450); RED BLOOD COUNT 3.91 10^6/uL (4.00-5.40); WHITE BLOOD COUNT 4.6 10^3/uL (4.0-10.0)
[2021-03-14 14:49] LABS: HEMOGLOBIN A1c 7.2 %
== END ==
LOC: M SFHCCLAY 13:56
PROVIDERS: ATTEND Family Medicine
DX: D50.9 Iron deficiency anemia, unspecified (principal); E11.9 Type 2 diabetes mellitus without complications
CPT/HCPCS: 83036; 83540; 85027; G0463

== ENCOUNTER → 2021-03-27 | Outpatient (CLI) | payer MEDICARE ==
--- NOTE | 2021-03-27 10:14 | REP ---
INDICATION: UNSPECIFIED CIRRHOSIS OF LIVER/ LABS 1ST. COMPARISON: 09/27/2019. TECHNIQUE: Real-time sonographic evaluation of right upper quadrant performed. FINDINGS: There has been a prior cholecystectomy.. Common bile duct measures 7 mm. There is no significant intrahepatic or extrahepatic biliary dilatation. Liver demonstrates diffuse coarsened, heterogeneous echotexture. There is enlargement of the liver, with a length of 19.9 centimetres. No focal liver mass is seen. The main portal vein measures 15 mm in diameter, suggesting portal hypertension. The pancreas demonstrates homogeneous echotexture with no gross mass. The right kidney demonstrates no hydronephrosis, with a normal size of 10.0 cm in length. There is cortical thinning of the right kidney. There are 2 adjacent simple cysts of the right kidney, 2.5 cm and 2.4 cm in maximum diameter.No free fluid is seen. IMPRESSION: Prior cholecystectomy. Hepatomegaly with diffuse coarsened echotexture but no gross mass. Main portal vein is mildly dilated suggesting portal hypertension. No ascites. <Electronically signed by Guillermo Rendon > 03/27/21 [id number]
[2021-03-27 11:34] LABS: ALBUMIN 3.5 GM/DL (3.2-5.2); BILIRUBIN,DIRECT 0.2 MG/DL (0.0-0.2); BILIRUBIN,TOTAL 0.6 MG/DL (0.2-1.0); TOTAL PROTEIN 7.3 GM/DL (6.4-8.2)
== END ==
LOC: M LAB 08:42
PROVIDERS: ATTEND Internal Medicine Gastroenterology
DX: K74.60 Unspecified cirrhosis of liver (principal); D3A.098 Benign carcinoid tumors of other sites; Z90.49 Acquired absence of other specified parts of digestive tract; K76.6 Portal hypertension

== ENCOUNTER 2021-05-22 09:45 | Outpatient (CLI) | payer MEDICARE ==
--- NOTE | 2021-05-24 13:05 | REP ---
INDICATION: ABN TUMOR MARKERS. COMPARISON: None. TECHNIQUE/RADIOTRACER AND DOSE: After the intravenous administration of indium 111 Octreoscan whole-body tumor imaging scintigraphy was obtained FINDINGS: There is splenomegaly. There is increased activity in the region of the sigmoid colon. There is evidence of hepatomegaly with minimal activity seen throughout the liver. IMPRESSION: 1. Splenomegaly 2. Hepatomegaly 3. Activity in the region of the sigmoid colon. Inflammatory versus neoplastic change. Contrast-enhanced CT examination of the abdomen and pelvis is suggested with both oral bowel preparatory contrast and intravenous contrast agents <Electronically signed by Hay Rogers > 05/24/21 [id number]
== END 2021-05-24 10:00 ==
LOC: M RAD 09:45
PROVIDERS: ATTEND Internal Medicine Gastroenterology
DX: R97.0 Elevated carcinoembryonic antigen [CEA] (principal); R16.1 Splenomegaly, not elsewhere classified; R16.0 Hepatomegaly, not elsewhere classified
CPT/HCPCS: 78803; 78804; A9572

== ENCOUNTER → 2021-06-18 | Outpatient (REF) | payer MEDICARE ==
[2021-06-18 13:40] LABS: BLOOD UREA NITROGEN 14 MG/DL (7-18); CREATININE FOR GFR 0.84 MG/DL (0.55-1.30); GLOMERULAR FILTRATION RATE > 60.0 (>45)
== END ==
LOC: M LABDRAWC 12:54
PROVIDERS: ATTEND Internal Medicine Gastroenterology
DX: Z98.0 Intestinal bypass and anastomosis status (principal)

== ENCOUNTER → 2021-06-20 | Outpatient (CLI) | payer MEDICARE ==
[~2021-06-20] MED LIST changes: +GASTROGRAFIN SOLUTION 30ML (Q9963) As Ordered ONE; +ISOVUE-370 76% 100ML VIAL As Ordered ONE
--- NOTE | 2021-06-20 17:02 | REP ---
INDICATION: ABN IMAGING, CIRRHOSIS, INTESTINAL BYPASS ANASTOMO. Post total colectomy and ileo anal anastomosis/continence pouch. Abnormal octreotide scan elevated chromogranin. COMPARISON: Comparison CT studies are from December 17, 2018, September 01, 2018, and August 25, 2017. Comparison octreotide scan 23 May 2021. TECHNIQUE: Helical scanning is acquired and 3 mm axial images re-formatted. Coronal and sagittal MPR images are generated. The CT contrast enhancement dose is 100 mL of intravenous Isovue 370. Oral contrast was also administered. FINDINGS: Preliminary digital payroll auditor radiograph demonstrates hepatosplenomegaly. Spleen measures 19 cm in greatest craniocaudal span. In the midclavicular line, the liver has a vertical span of 20.5 cm which is enlarged as well. The liver contour is micro nodular consistent with the history of cirrhosis. No focal hepatic lesion is seen. There are small hypervascular nodules in the spleen consistent with small splenic hemangiomas. These are unchanged from the 2018 and 2017 prior study. No pancreatic abnormality is observed. The gallbladder is not seen. There is minimal ascites in the upper abdomen adjacent to the liver. There is no evidence of hydronephrosis. There are small cortical cysts in the lower pole of each kidney. There are 2 right mid renal cyst projecting posteriorly which are both slightly larger than on the prior study. These measure 2.6 cm in greatest diameter each. The more superior has a slightly higher attenuation consistent with a complex cyst. No retroperitoneal mass or adenopathy is seen. No abnormality is noted in the pancreas. There is an epigastric ventral hernia trans [place] some abdominal fat. The distal small bowel is opacified with orally administered contrast. The ileo anal anastomotic area shows mild mural thickening. This is essentially unchanged in appearance from the December 17, 2018 study. There is no evidence of adjacent mass or adenopathy. Urinary bladder is unremarkable. No pelvic adenopathy is seen. Bone window settings show no bony destructive lesion. IMPRESSION: Status post colectomy with ileal anal anastomosis. There is some mural thickening in the ileal pouch in the pelvis mild in degree and unchanged. Hepatosplenomegaly is seen. Minimal upper abdominal ascites. Micronodular liver contour consistent with cirrhosis. Bilateral renal cysts. No mass or adenopathy is seen. <Electronically signed by Mark Gray > 06/20/21 [id number]
== END ==
LOC: M RAD 13:41
PROVIDERS: ATTEND Internal Medicine Gastroenterology
DX: R93.3 Abnormal findings on diagnostic imaging of other parts of digestive tract (principal); Z98.0 Intestinal bypass and anastomosis status; K74.69 Other cirrhosis of liver; R16.2 Hepatomegaly with splenomegaly, not elsewhere classified
CPT/HCPCS: 74177; Q9963; Q9967

== ENCOUNTER → 2021-07-04 | Outpatient (CLI) | payer MEDICARE ==
[~2021-07-04] MED LIST changes: -GASTROGRAFIN SOLUTION 30ML (Q9963) As Ordered ONE; -ISOVUE-370 76% 100ML VIAL As Ordered ONE
== END ==
LOC: M LABSMTC 10:53
PROVIDERS: ATTEND Anesthesiology
DX: Z11.52 Encounter for screening for COVID-19 (principal); Z20.822 Contact with and (suspected) exposure to COVID-19

== ENCOUNTER 2021-07-09 07:13 | Day surgery (SDC) | payer MEDICARE ==
[~2021-07-09] VITALS: Ht 160 cm; Wt 80.6 kg
[~2021-07-09 07:13] MED LIST changes: +NS 1,000 ML IV ONE
[2021-07-09] MEDS ORDERED: propofoL 200 MG/20 ML VIAL As Ordered ONE (07:49)
[2021-07-09] MEDS ORDERED: LIDOCAINE 2% 100MG/5ML SDV (FOR ANES.) As Ordered ONE (07:49)
[2021-07-09] MEDS ORDERED: fentaNYL 100 MCG/2 ML INJECTION (J3010) As Ordered ONE (07:49)
--- NOTE | 2021-07-09 08:37 | ROOR ---
Patient Name: Latoya Rodriguez Procedure Date: 07/09/2021 8:10 AM Date of : 1950 Age: 70 Room: [facility] Gender: Female Note Status: Finalized Procedure: Upper GI endoscopy Indications: Cirrhosis with suspected esophageal varices, Familial Adenomatous Polyposis. Follow up prior excisionb of small proximal esophageal carcinoid. Elevated chromograninA Providers: Harjeet Mathews MD Referring MD: Braeden Nava MD, Gokul Dunham MD Requesting Provider: Medicines: Monitored Anesthesia Care Complications: No immediate complications. Procedure: Pre-Anesthesia Assessment: - The heart rate, respiratory rate, oxygen saturations, blood pressure, adequacy of pulmonary ventilation, and response to care were monitored throughout the procedure. The Endoscope was introduced through the mouth, and advanced to the second part of duodenum. The upper GI endoscopy was accomplished without difficulty. The patient tolerated the procedure well. Findings: Grade I varices were found in the lower third of the esophagus. (Varices are small today, primary prevention/eradication not indicated today) Diffuse mild inflammation characterized by erythema was found in the gastric antrum. Biopsies were taken with a cold forceps for histology. The examined duodenum was normal. The area of the papilla was normal. Biopsies were taken with a cold forceps for histology. Impression: - Small scar in proximal esophagus/cricopharyngeus (site of previosly resected small carcinoid).--biopsied - Grade I esophageal varices. - Mild gastritis. Biopsied. - Normal examined duodenum. Normal area of the papilla. Biopsied. Recommendation: - Repeat upper endoscopy in 1 year for surveillance. Procedure Code(s): --- Professional --- 90857, Esophagogastroduodenoscopy, flexible, transoral; with biopsy, single or multiple Diagnosis Code(s): --- Professional --- D12.6, Benign neoplasm of colon, unspecified K74.60, Unspecified cirrhosis of liver K29.70, Gastritis, unspecified, without bleeding I85.10, Secondary esophageal varices without bleeding CPT copyright 2019 [employer]. All rights reserved. The codes documented in this report are preliminary and upon cardiology specialist review may be revised to meet current compliance requirements. Harjeet Mathews MD Harjeet Mathews MD 07/09/2021 8:36:26 AM Electronically signed by Harjeet Mathews MD Number of Addenda: 0 Note Initiated On: 07/09/2021 8:10 AM Estimated Blood Loss: Estimated blood loss: none.
[2021-07-09] MEDS ORDERED: PHENYLephrine 500MCG 5ML (100MCG/ML) SYRINGE As Ordered ONE (08:57)
--- NOTE | 2021-07-09 08:58 | ROOR ---
Patient Name: Latoya Rodriguez Procedure Date: 07/09/2021 8:12 AM Date of : 1950 Age: 70 Room: [facility] Gender: Female Note Status: Finalized Procedure: Flexible Sigmoidoscopy Indications: Evaluation of abnormal imaging study (likely to be clinically significant). Abnormal Octreotide scan. Increased Chromogranin level. Providers: Harjeet Mathews MD Referring MD: Braeden Nava MD, Gokul Dunham MD Requesting Provider: Medicines: Monitored Anesthesia Care Complications: No immediate complications. Procedure: Pre-Anesthesia Assessment: - The heart rate, respiratory rate, oxygen saturations, blood pressure, adequacy of pulmonary ventilation, and response to care were monitored throughout the procedure. The Colonoscope was introduced through the anus and advanced to 60 cm from the anal verge. The flexible sigmoidoscopy was accomplished without difficulty. The patient tolerated the procedure well. The quality of the bowel preparation was good. Findings: A single 5-6 mm shallow erosion was found at the proximal end of the continence pouch/anastomosis. Biopsied The ileum appeared otherwise normal to at least 60 cm from verge. Impression: - Essentially normal pouch with a small shallow erosion at proximal end at the anastomosis. Biopsied - The ileum more proximal to the pouch is normal to 60 cm. - No specimens collected. Recommendation: - Return to my office in 1 month. Procedure Code(s): --- Professional --- 37780, Sigmoidoscopy, flexible; diagnostic, including collection of specimen(s) by brushing or washing, when performed (separate procedure) Diagnosis Code(s): --- Professional --- R93.3, Abnormal findings on diagnostic imaging of other parts of digestive tract K63.3, Ulcer of intestine CPT copyright 2019 [employer]. All rights reserved. The codes documented in this report are preliminary and upon medical clerical assistant review may be revised to meet current compliance requirements. Harjeet Mathews MD Harjeet Mathews MD 07/09/2021 8:57:54 AM Electronically signed by Harjeet Mathews MD Number of Addenda: 0 Note Initiated On: 07/09/2021 8:12 AM Estimated Blood Loss: Estimated blood loss: none.
[2021-07-09 09:23] VITALS: BP 137/69
== END 2021-07-09 09:26 | disposition home or self-care (01) ==
LOC: M OPP 07:13
PROVIDERS: ATTEND Internal Medicine Gastroenterology
DX: K63.3 Ulcer of intestine (principal); R93.3 Abnormal findings on diagnostic imaging of other parts of digestive tract; K74.60 Unspecified cirrhosis of liver; D12.6 Benign neoplasm of colon, unspecified; K29.70 Gastritis, unspecified, without bleeding; I85.10 Secondary esophageal varices without bleeding; D50.9 Iron deficiency anemia, unspecified; Z80.0 Family history of malignant neoplasm of digestive organs; Z80.6 Family history of leukemia; Z80.3 Family history of malignant neoplasm of breast; Z79.899 Other long term (current) drug therapy; Z88.0 Allergy status to penicillin; Z88.1 Allergy status to other antibiotic agents; Z88.2 Allergy status to sulfonamides; Z88.5 Allergy status to narcotic agent; Z88.7 Allergy status to serum and vaccine; Z88.8 Allergy status to other drugs, medicaments and biological substances
CPT/HCPCS: 43239; 45330; 88305; J2370; J3010

== ENCOUNTER → 2021-09-11 | Outpatient (CLI) | payer MEDICARE ==
[~2021-09-11] MED LIST changes: -DICY20TA11 PO; +DICY20TA20 PO; +LOSA25TA13 PO; -LOSA25TA14 PO; -NS 1,000 ML IV ONE
== END ==
LOC: M CLY 10:14
PROVIDERS: ATTEND Physician Assistant
DX: M47.812 Spondylosis without myelopathy or radiculopathy, cervical region (principal); M54.2 Cervicalgia
CPT/HCPCS: 72050; G0463

== ENCOUNTER → 2022-01-11 | Outpatient (REF) | payer MEDICARE ==
[2022-01-11 16:12] LABS: ALBUMIN 3.5 GM/DL (3.2-5.2); ALT/SGPT 25 U/L (12-78); BILIRUBIN,TOTAL 0.6 MG/DL (0.2-1.0); BLOOD UREA NITROGEN 11 MG/DL (7-18); CALCIUM LEVEL 9.5 MG/DL (8.8-10.2); CARBON DIOXIDE LEVEL 26 MEQ/L (21-32); CHLORIDE LEVEL 111 MEQ/L (98-107); CREATININE FOR GFR 0.91 MG/DL (0.55-1.30); FERRITIN 10 NG/ML (8-252); GLOMERULAR FILTRATION RATE > 60.0 (>45); GLUCOSE, FASTING 191 MG/DL (70-100); IRON (FE) 43 UG/DL (50-170); PERCENT SATURATION 10.5 % (13.2-45.0); POTASSIUM SERUM 4.6 MEQ/L (3.5-5.1); SODIUM LEVEL 141 MEQ/L (136-145); TOTAL IRON BINDING CAPACITY 411 UG/DL (250-450); TOTAL PROTEIN 7.2 GM/DL (6.4-8.2)
[2022-01-11 16:31] LABS: HEMOGLOBIN A1c 8.9 %
== END ==
LOC: M SFHCCLAY 09:52
PROVIDERS: ATTEND Family Medicine
DX: D50.9 Iron deficiency anemia, unspecified (principal); E11.9 Type 2 diabetes mellitus without complications; I10 Essential (primary) hypertension; K21.9 Gastro-esophageal reflux disease without esophagitis; K74.60 Unspecified cirrhosis of liver

== ENCOUNTER → 2022-05-22 | Outpatient (REF) | payer MEDICARE ==
[2022-05-22 17:02] LABS: HEMATOCRIT 32.2 % (36.0-47.0); HEMOGLOBIN 10.3 g/dl (12.0-15.5); MEAN CORPUSCULAR HEMOGLOBIN 27.9 pg (27.0-33.0); MEAN CORPUSCULAR VOLUME 87.3 fl (80.0-96.0); PLATELET COUNT, AUTOMATED 118 10^3/uL (150-450); RED BLOOD COUNT 3.69 10^6/uL (4.00-5.40); WHITE BLOOD COUNT 4.7 10^3/uL (4.0-10.0)
[2022-05-22 19:46] LABS: ALBUMIN 3.1 GM/DL (3.2-5.2); ALT/SGPT 19 U/L (12-78); BILIRUBIN,TOTAL 0.4 MG/DL (0.2-1.0); BLOOD UREA NITROGEN 12 MG/DL (7-18); CALCIUM LEVEL 9.1 MG/DL (8.8-10.2); CARBON DIOXIDE LEVEL 26 MEQ/L (21-32); CHLORIDE LEVEL 112 MEQ/L (98-107); CREATININE FOR GFR 0.92 MG/DL (0.55-1.30); FERRITIN 10 NG/ML (8-252); GLOMERULAR FILTRATION RATE > 60.0 (>45); GLUCOSE, FASTING 226 MG/DL (70-100); IRON (FE) 24 UG/DL (50-170); PERCENT SATURATION 6.1 % (13.2-45.0); POTASSIUM SERUM 4.1 MEQ/L (3.5-5.1); SODIUM LEVEL 143 MEQ/L (136-145); TOTAL IRON BINDING CAPACITY 393 UG/DL (250-450); TOTAL PROTEIN 6.8 GM/DL (6.4-8.2)
[2022-05-22 22:37] LABS: HEMOGLOBIN A1c 8.5 %
== END ==
LOC: M SFHCCLAY 10:13
PROVIDERS: ATTEND Family Medicine
DX: K74.60 Unspecified cirrhosis of liver (principal); I10 Essential (primary) hypertension; E11.9 Type 2 diabetes mellitus without complications

== ENCOUNTER → 2022-05-31 | Outpatient (CLI) | payer MEDICARE | LOC: M RAD 08:30 | PROVIDERS: ATTEND Family Medicine | DX: K74.60 Unspecified cirrhosis of liver (principal); R16.2 Hepatomegaly with splenomegaly, not elsewhere classified; N20.0 Calculus of kidney ==

== ENCOUNTER → 2022-08-05 | Outpatient (CLI) | payer MEDICARE | LOC: M WHC 08:34 | PROVIDERS: ATTEND Internal Medicine Gastroenterology | DX: K74.69 Other cirrhosis of liver (principal) ==

== ENCOUNTER → 2022-08-08 | Outpatient (REF) | payer MEDICARE ==
[2022-08-08 19:23] LABS: ALBUMIN 3.3 GM/DL (3.2-5.2); BILIRUBIN,DIRECT 0.5 MG/DL (0.0-0.2); BILIRUBIN,TOTAL 0.9 MG/DL (0.2-1.0); TOTAL PROTEIN 7.3 GM/DL (6.4-8.2)
== END ==
LOC: M LABDRAWC 16:54
PROVIDERS: ATTEND Internal Medicine Gastroenterology
DX: R97.8 Other abnormal tumor markers (principal); D3A.098 Benign carcinoid tumors of other sites; K74.69 Other cirrhosis of liver; Z15.09 Genetic susceptibility to other malignant neoplasm

== ENCOUNTER → 2022-09-03 | Outpatient (CLI) | payer MEDICARE ==
[~2022-09-03] MED LIST changes: +AZO1CAP PO; +GLIP5TAB8 PO
== END ==
LOC: M LABSMTC 10:27
PROVIDERS: ATTEND Anesthesiology
DX: Z01.812 Encounter for preprocedural laboratory examination (principal); Z11.52 Encounter for screening for COVID-19

== ENCOUNTER 2022-09-05 06:46 | Day surgery (SDC) | payer MEDICARE ==
[~2022-09-05] VITALS: Ht 160 cm; Wt 80.3 kg
[~2022-09-05 06:46] MED LIST changes: +NS 1,000 ML IV ONE
[2022-09-05] MEDS ORDERED: DIPH50CA PO (07:20)
[2022-09-05] MEDS ORDERED: LIDOCAINE 2% 100MG/5ML SDV (FOR ANES.) As Ordered ONE (07:25)
[2022-09-05] MEDS ORDERED: propofoL 200 MG/20 ML VIAL As Ordered ONE (07:25)
[2022-09-05 08:41] VITALS: BP 140/82
== END 2022-09-05 08:57 | disposition home or self-care (01) ==
LOC: M OPP 06:46
PROVIDERS: ATTEND Internal Medicine Gastroenterology
DX: K74.60 Unspecified cirrhosis of liver (principal); K68.9 Other disorders of retroperitoneum; K64.9 Unspecified hemorrhoids; Z98.0 Intestinal bypass and anastomosis status; Z15.09 Genetic susceptibility to other malignant neoplasm; I85.10 Secondary esophageal varices without bleeding; K29.70 Gastritis, unspecified, without bleeding; K31.7 Polyp of stomach and duodenum; Z79.899 Other long term (current) drug therapy; Z88.0 Allergy status to penicillin; Z88.2 Allergy status to sulfonamides; Z88.5 Allergy status to narcotic agent; Z88.8 Allergy status to other drugs, medicaments and biological substances; E11.9 Type 2 diabetes mellitus without complications; I10 Essential (primary) hypertension; Z87.891 Personal history of nicotine dependence; K63.89 Other specified diseases of intestine; Z80.0 Family history of malignant neoplasm of digestive organs; Z80.3 Family history of malignant neoplasm of breast; Z80.6 Family history of leukemia

== ENCOUNTER → 2022-12-24 | Outpatient (REF) | payer MEDICARE ==
[~2022-12-24] MED LIST changes: +DIPH50CA PO; -NS 1,000 ML IV ONE
[2022-12-24 18:38] LABS: HEMOGLOBIN A1c 6.3 % (4.0-6.0)
[2022-12-25 12:27] LABS: CREATININE, URINE 217.1 MG/DL; MAU/CREAT RATIO 14.7 MCG/MG (0.0-30.0)
== END ==
LOC: M SFHCCLAY 09:46
PROVIDERS: ATTEND Family Medicine
DX: E11.9 Type 2 diabetes mellitus without complications (principal)

== ENCOUNTER → 2022-12-24 | Outpatient (REF) | payer MEDICARE ==
[2022-12-24 18:22] LABS: BASO % 0.4 % (0.0-1.0); EOS # 0.2 10^3/uL (0.0-0.5); EOS % 3.2 % (0.0-3.0); HEMATOCRIT 35.3 % (36.0-47.0); HEMOGLOBIN 11.2 g/dl (12.0-15.5); LYMPH # 1.4 10^3/uL (1.5-5.0); LYMPH % 27.5 % (24.0-44.0); MEAN CORPUSCULAR HEMOGLOBIN 30.8 pg (27.0-33.0); MEAN CORPUSCULAR HGB CONC 31.7 g/dl (32.0-36.5); MONO # 0.3 10^3/uL (0.0-0.8); MONO % 5.9 % (2.0-8.0); NEUTROPHILS # 3.1 10^3/uL (1.5-8.5); NEUTROPHILS % 62.6 % (36.0-66.0); PLATELET COUNT, AUTOMATED 143 10^3/uL (150-450); RED BLOOD COUNT 3.64 10^6/uL (4.00-5.40)
[2022-12-24 19:14] LABS: FERRITIN 80.1 NG/ML (7.3-270.7)
[2022-12-24 19:18] LABS: ALBUMIN 3.2 G/DL (3.2-5.2); ALKALINE PHOSPHATASE 69 U/L (46-116); ALT/SGPT 16 U/L (7.0-40); AST/SGOT 30 U/L (<34); BILIRUBIN,TOTAL 0.6 MG/DL (0.3-1.2); BLOOD UREA NITROGEN 13 MG/DL (9-23); CARBON DIOXIDE LEVEL 27 MMOL/L (20-31); CHLORIDE LEVEL 109 MMOL/L (98-107); CREATININE FOR GFR 0.81 MG/DL (0.55-1.30); GLOMERULAR FILTRATION RATE > 60.0 (>39); GLUCOSE, FASTING 128 MG/DL (74-106); IRON (FE) 56 UG/DL (50-170); PERCENT SATURATION 19.5 % (13.2-45.0); POTASSIUM SERUM 4.4 MMOL/L (3.5-5.1); SODIUM LEVEL 143 MMOL/L (136-145); TOTAL IRON BINDING CAPACITY 287 UG/DL (250-425); TOTAL PROTEIN 6.7 G/DL (5.7-8.2)
== END ==
LOC: M LABDRAWC 17:18
PROVIDERS: ATTEND Internal Medicine Medical Oncology
DX: D50.9 Iron deficiency anemia, unspecified (principal); E11.9 Type 2 diabetes mellitus without complications

== ENCOUNTER → 2023-01-20 | Outpatient (CLI) | payer MEDICARE | LOC: M WHC 08:54 | PROVIDERS: ATTEND Internal Medicine Gastroenterology | DX: K74.69 Other cirrhosis of liver (principal); K76.0 Fatty (change of) liver, not elsewhere classified; N28.1 Cyst of kidney, acquired; Z90.49 Acquired absence of other specified parts of digestive tract ==

== ENCOUNTER → 2023-01-28 | Outpatient (REF) | payer MEDICARE ==
[2023-01-28 11:44] LABS: INR 1.17; PROTHROMBIN TIME 15.1 SECONDS (12.5-14.5)
[2023-01-28 11:57] LABS: ALBUMIN 3.4 G/DL (3.2-5.2); BILIRUBIN,DIRECT 0.3 MG/DL (<0.4); BILIRUBIN,TOTAL 0.7 MG/DL (0.3-1.2); TOTAL PROTEIN 6.7 G/DL (5.7-8.2)
== END ==
LOC: M LABDRAWC 11:08
PROVIDERS: ATTEND Internal Medicine Gastroenterology
DX: K74.69 Other cirrhosis of liver (principal); R97.8 Other abnormal tumor markers

== ENCOUNTER → 2023-02-05 | Outpatient (CLI) | payer MEDICARE | LOC: M RAD 13:38 | PROVIDERS: ATTEND Internal Medicine Gastroenterology | DX: R14.0 Abdominal distension (gaseous) (principal) ==

== ENCOUNTER → 2023-02-09 | Outpatient (REF) | payer MEDICARE | LOC: M LAB REF 11:37 | PROVIDERS: ATTEND Internal Medicine Gastroenterology | DX: R19.7 Diarrhea, unspecified (principal) ==

== ENCOUNTER → 2023-04-11 | Outpatient (REF) | payer MEDICARE ==
[2023-04-11 18:25] LABS: ALBUMIN 3.5 G/DL (3.2-5.2); ALKALINE PHOSPHATASE 69 U/L (46-116); ALT/SGPT 15 U/L (7.0-40); AST/SGOT 23 U/L (<34); BILIRUBIN,TOTAL 0.9 MG/DL (0.3-1.2); BLOOD UREA NITROGEN 15 MG/DL (9-23); CALCIUM LEVEL 10.7 MG/DL (8.3-10.6); CARBON DIOXIDE LEVEL 26 MMOL/L (20-31); CHLORIDE LEVEL 110 MMOL/L (98-107); CREATININE FOR GFR 0.82 MG/DL (0.55-1.30); GLOMERULAR FILTRATION RATE > 60.0 (>39); GLUCOSE, FASTING 123 MG/DL (74-106); POTASSIUM SERUM 4.6 MMOL/L (3.5-5.1); SODIUM LEVEL 142 MMOL/L (136-145); TOTAL PROTEIN 6.9 G/DL (5.7-8.2)
== END ==
LOC: M SFHCCLAY 13:38
PROVIDERS: ATTEND Family Medicine
DX: E11.9 Type 2 diabetes mellitus without complications (principal)

== ENCOUNTER → 2023-05-23 | Outpatient (REF) | payer MEDICARE ==
[~2023-05-23] MED LIST changes: +DICY-61 PO; -DICY10CA13 PO
== END ==
LOC: M SFHCCLAY 10:12
PROVIDERS: ATTEND Family Medicine
DX: R19.7 Diarrhea, unspecified (principal)

== ENCOUNTER → 2023-06-25 | Outpatient (REF) | payer MEDICARE ==
[2023-06-25 18:22] LABS: BASO % 0.5 % (0.0-1.0); EOS # 0.1 10^3/uL (0.0-0.5); EOS % 2.6 % (0.0-3.0); HEMATOCRIT 32.7 % (36.0-47.0); HEMOGLOBIN 10.5 g/dl (12.0-15.5); LYMPH # 1.1 10^3/uL (1.5-5.0); LYMPH % 26.8 % (24.0-44.0); MEAN CORPUSCULAR HEMOGLOBIN 29.5 pg (27.0-33.0); MEAN CORPUSCULAR HGB CONC 32.1 g/dl (32.0-36.5); MEAN CORPUSCULAR VOLUME 91.9 fl (80.0-96.0); MONO # 0.3 10^3/uL (0.0-0.8); MONO % 5.9 % (2.0-8.0); NEUTROPHILS # 2.7 10^3/uL (1.5-8.5); PLATELET COUNT, AUTOMATED 141 10^3/uL (150-450); RED BLOOD COUNT 3.56 10^6/uL (4.00-5.40); WHITE BLOOD COUNT 4.3 10^3/uL (4.0-10.0)
[2023-06-25 18:53] LABS: ALBUMIN 3.3 G/DL (3.2-5.2); ALKALINE PHOSPHATASE 62 U/L (46-116); ALT/SGPT 17 U/L (7.0-40); AST/SGOT 27 U/L (<34); BILIRUBIN,TOTAL 0.8 MG/DL (0.3-1.2); BLOOD UREA NITROGEN 12 MG/DL (9-23); CALCIUM LEVEL 9.4 MG/DL (8.3-10.6); CARBON DIOXIDE LEVEL 26 MMOL/L (20-31); CHLORIDE LEVEL 112 MMOL/L (98-107); CREATININE FOR GFR 0.81 MG/DL (0.55-1.30); GLOMERULAR FILTRATION RATE > 60.0 (>39); GLUCOSE, FASTING 130 MG/DL (74-106); POTASSIUM SERUM 4.8 MMOL/L (3.5-5.1); SODIUM LEVEL 143 MMOL/L (136-145); TOTAL PROTEIN 6.6 G/DL (5.7-8.2)
[2023-06-25 18:55] LABS: FOLATE 23.1 NG/ML (>5.4); VITAMIN B12 LEVEL 352 PG/ML (211-911)
== END ==
LOC: M LABDRAWC 17:34
PROVIDERS: ATTEND Internal Medicine Medical Oncology
DX: D64.9 Anemia, unspecified (principal)

== ENCOUNTER → 2023-11-20 | Outpatient (CLI) | payer MEDICARE ==
[~2023-11-20] MED LIST changes: +GLIP5TAB17 PO; -GLIP5TAB8 PO
== END ==
LOC: M WHC 14:48
PROVIDERS: ATTEND Family Medicine
DX: R14.0 Abdominal distension (gaseous) (principal)

== ENCOUNTER → 2023-11-21 | Outpatient (CLI) | payer MEDICARE | LOC: M RAD 09:42 | PROVIDERS: ATTEND Family Medicine | DX: R14.0 Abdominal distension (gaseous) (principal); I85.11 Secondary esophageal varices with bleeding; M79.605 Pain in left leg; K74.60 Unspecified cirrhosis of liver; R18.8 Other ascites ==

== ENCOUNTER → 2023-12-11 | Outpatient (REF) | payer MEDICARE ==
[2023-12-11 18:20] LABS: HEMOGLOBIN A1c 5.4 % (4.0-6.0)
[2023-12-11 18:33] LABS: CALCIUM LEVEL 9.2 MG/DL (8.3-10.6); CREATININE FOR GFR 1.18 MG/DL (0.55-1.30); GLOMERULAR FILTRATION RATE 48.1 (>39); PERCENT SATURATION 9.7 % (13.2-45.0); POTASSIUM SERUM 4.5 MMOL/L (3.5-5.1)
== END ==
LOC: M SFHCCLAY 09:38
PROVIDERS: ATTEND Family Medicine
DX: E11.9 Type 2 diabetes mellitus without complications (principal); D50.9 Iron deficiency anemia, unspecified

== ENCOUNTER 2023-12-29 12:57 | Day surgery (SDC) | payer MEDICARE ==
[~2023-12-29] VITALS: Ht 160 cm; Wt 68.6 kg
[~2023-12-29 12:57] MED LIST changes: +FURO40TA2 PO; +OMEP40CA5 PO; +PANT40TA29 PO; +PROP10TA56 PO; +SPIR100T3 PO; +SPIR50TA4 PO
[2023-12-29] MEDS: NS 1,000 ML IV ONE (15:06)
[2023-12-29] MEDS ORDERED: LIDOCAINE 2% 100MG/5ML SDV (FOR ANES.) As Ordered ONE (15:50)
[2023-12-29] MEDS ORDERED: fentaNYL 100 MCG/2 ML INJECTION As Ordered ONE (15:50)
[2023-12-29] MEDS ORDERED: propofoL 200 MG/20 ML VIAL As Ordered ONE (16:08)
[2023-12-29 16:11] VITALS: TEMP 96
[2023-12-29 16:40] VITALS: BP 162/70; O2SAT 99
== END 2023-12-29 16:48 | disposition home or self-care (01) ==
LOC: M OPP 12:57
PROVIDERS: ATTEND Internal Medicine Gastroenterology
DX: I85.00 Esophageal varices without bleeding (principal); E11.9 Type 2 diabetes mellitus without complications; Z87.891 Personal history of nicotine dependence; Z79.84 Long term (current) use of oral hypoglycemic drugs; Z79.899 Other long term (current) drug therapy; Z88.0 Allergy status to penicillin; Z88.1 Allergy status to other antibiotic agents; Z88.2 Allergy status to sulfonamides; Z88.5 Allergy status to narcotic agent; Z88.7 Allergy status to serum and vaccine
CPT/HCPCS: 43244; J3010

== ENCOUNTER → 2024-01-28 | Outpatient (REF) | payer MEDICARE ==
[~2024-01-28] MED LIST changes: +DIPH1TAB80 PO; -DIPH2.5T14 PO
== END ==
LOC: M SFHCCLAY 09:46
PROVIDERS: ATTEND Family Medicine
DX: Z53.9 Procedure and treatment not carried out, unspecified reason (principal)

== ENCOUNTER → 2024-01-28 | Outpatient (REF) | payer MEDICARE ==
[2024-01-28 17:27] LABS: INR 1.32
[2024-01-28 17:58] LABS: BASO # 0.1 10^3/uL (0.0-0.2); BASO % 0.8 % (0.0-1.0); EOS # 0.1 10^3/uL (0.0-0.5); EOS % 2.3 % (0.0-3.0); HEMATOCRIT 27.2 % (36.0-47.0); HEMOGLOBIN 8.6 g/dl (12.0-15.5); LYMPH # 1.9 10^3/uL (1.5-5.0); LYMPH % 30.2 % (24.0-44.0); MEAN CORPUSCULAR HEMOGLOBIN 24.8 pg (27.0-33.0); MEAN CORPUSCULAR HGB CONC 31.6 g/dl (32.0-36.5); MEAN CORPUSCULAR VOLUME 78.4 fl (80.0-96.0); MONO # 0.5 10^3/uL (0.0-0.8); MONO % 7.6 % (2.0-8.0); NEUTROPHILS # 3.6 10^3/uL (1.5-8.5); NEUTROPHILS % 58.8 % (36.0-66.0); PLATELET COUNT, AUTOMATED 210 10^3/uL (150-450); RED BLOOD COUNT 3.47 10^6/uL (4.00-5.40); WHITE BLOOD COUNT 6.2 10^3/uL (4.0-10.0)
[2024-01-28 18:14] LABS: ALBUMIN 2.5 G/DL (3.2-5.2); BILIRUBIN,TOTAL 1.3 MG/DL (0.3-1.2); CALCIUM LEVEL 9.2 MG/DL (8.3-10.6); CREATININE FOR GFR 0.99 MG/DL (0.55-1.30); GLOMERULAR FILTRATION RATE 58.9 (>39); POTASSIUM SERUM 4.7 MMOL/L (3.5-5.1); TOTAL PROTEIN 6.3 G/DL (5.7-8.2)
== END ==
LOC: M LABDRAWC 17:19
PROVIDERS: ATTEND Internal Medicine Gastroenterology
DX: K74.60 Unspecified cirrhosis of liver (principal); R18.8 Other ascites; R97.8 Other abnormal tumor markers

== ENCOUNTER → 2024-02-13 | Outpatient (REF) | payer MEDICARE ==
[~2024-02-13] MED LIST changes: +OMEP40CA4 PO
[2024-02-13 11:49] LABS: BASO % 0.6 % (0.0-1.0); EOS # 0.2 10^3/uL (0.0-0.5); EOS % 2.8 % (0.0-3.0); HEMATOCRIT 25.8 % (36.0-47.0); HEMOGLOBIN 7.9 g/dl (12.0-15.5); LYMPH % 36.2 % (24.0-44.0); MEAN CORPUSCULAR HEMOGLOBIN 23.7 pg (27.0-33.0); MEAN CORPUSCULAR HGB CONC 30.6 g/dl (32.0-36.5); MEAN CORPUSCULAR VOLUME 77.5 fl (80.0-96.0); MONO # 0.4 10^3/uL (0.0-0.8); MONO % 7.5 % (2.0-8.0); NEUTROPHILS # 2.9 10^3/uL (1.5-8.5); NEUTROPHILS % 52.5 % (36.0-66.0); PLATELET COUNT, AUTOMATED 189 10^3/uL (150-450); RED BLOOD COUNT 3.33 10^6/uL (4.00-5.40); WHITE BLOOD COUNT 5.4 10^3/uL (4.0-10.0)
[2024-02-13 12:03] LABS: ALBUMIN 2.3 G/DL (3.2-5.2); ALKALINE PHOSPHATASE 89 U/L (46-116); ALT/SGPT 14 U/L (7.0-40); AST/SGOT 26 U/L (<34); BILIRUBIN,TOTAL 0.9 MG/DL (0.3-1.2); BLOOD UREA NITROGEN 15 MG/DL (9-23); CALCIUM LEVEL 9.2 MG/DL (8.3-10.6); CARBON DIOXIDE LEVEL 24 MMOL/L (20-31); CHLORIDE LEVEL 109 MMOL/L (98-107); GLOMERULAR FILTRATION RATE > 60.0 (>39); GLUCOSE, FASTING 128 MG/DL (74-106); SODIUM LEVEL 139 MMOL/L (136-145)
== END ==
LOC: M LABDRAWC 11:21
PROVIDERS: ATTEND Internal Medicine Gastroenterology
DX: K74.60 Unspecified cirrhosis of liver (principal); D3A.098 Benign carcinoid tumors of other sites

== ENCOUNTER 2024-02-16 11:26 | Observation (INO) | payer MEDICARE ==
[~2024-02-16] VITALS: Ht 160 cm; Wt 75.2 kg
[2024-02-16] MEDS: NS 1,000 ML IV ONE (06:00)
[~2024-02-16 11:26] MED LIST changes: +CRAN500C11 PO; -CVS500CA5 PO
[2024-02-16] MEDS ORDERED: PANC10CAEC PO (12:30)
[2024-02-16] MEDS ORDERED: propofoL 500 MG/50 ML VIAL As Ordered ONE (13:15)
[2024-02-16] MEDS: diphenhydrAMINE 50MG/ML VIAL IV ONE (15:40)
[2024-02-16] MEDS ORDERED: IRON SUCROSE 100MG 5ML VIAL IV ONE (15:40)
[2024-02-16 16:29] LABS: BASO % 0.5 % (0.0-1.0); EOS # 0.2 10^3/uL (0.0-0.5); EOS % 2.7 % (0.0-3.0); HEMATOCRIT 27.1 % (36.0-47.0); HEMOGLOBIN 8.6 g/dl (12.0-15.5); LYMPH # 1.2 10^3/uL (1.5-5.0); LYMPH % 21.5 % (24.0-44.0); MEAN CORPUSCULAR HEMOGLOBIN 24.4 pg (27.0-33.0); MEAN CORPUSCULAR HGB CONC 31.7 g/dl (32.0-36.5); MONO # 0.3 10^3/uL (0.0-0.8); MONO % 4.9 % (2.0-8.0); NEUTROPHILS # 3.8 10^3/uL (1.5-8.5); NEUTROPHILS % 68.6 % (36.0-66.0); PLATELET COUNT, AUTOMATED 187 10^3/uL (150-450); RED BLOOD COUNT 3.52 10^6/uL (4.00-5.40); WHITE BLOOD COUNT 5.5 10^3/uL (4.0-10.0)
[2024-02-16 16:33] LABS: INR 1.17; PARTIAL THROMBOPLASTIN TIME 36.5 SECONDS (24.8-34.2); PROTHROMBIN TIME 14.5 SECONDS (12.5-14.5)
[2024-02-16 16:41] LABS: BLOOD UREA NITROGEN 18 MG/DL (9-23); CALCIUM LEVEL 8.5 MG/DL (8.3-10.6); CARBON DIOXIDE LEVEL 23 MMOL/L (20-31); CHLORIDE LEVEL 111 MMOL/L (98-107); CREATININE FOR GFR 0.86 MG/DL (0.55-1.30); GLOMERULAR FILTRATION RATE > 60.0 (>39); GLUCOSE, FASTING 127 MG/DL (74-106); POTASSIUM SERUM 3.9 MMOL/L (3.5-5.1); SODIUM LEVEL 143 MMOL/L (136-145)
[2024-02-16 16:43] LABS: ALBUMIN 2.3 G/DL (3.2-5.2); BILIRUBIN,DIRECT 0.6 MG/DL (<0.4); BILIRUBIN,TOTAL 1.4 MG/DL (0.3-1.2); MAGNESIUM LEVEL 1.5 MG/DL (1.8-2.4); PERCENT SATURATION 7.7 % (13.2-45.0); TOTAL PROTEIN 6.3 G/DL (5.7-8.2)
[2024-02-16 16:45] LABS: FERRITIN 10.5 NG/ML (7.3-270.7); THYROID STIMULATING HORMONE 0.704 uIU/ML (0.55-4.78); THYROXINE (T4) 8.6 UG/DL (4.5-10.9)
[2024-02-16 16:46] LABS: T UPTAKE 46.8 % (22.5-37.0)
[2024-02-16] MEDS ORDERED: LIDOCAINE VISCOUS 2% SOLN 15ML UDC SS PRN (17:00)
[2024-02-16] MEDS ORDERED: ACETAMINOPHEN 500 MG TAB PO PRN (17:20)
[2024-02-16] MEDS ORDERED: LOPERAMIDE 2 MG CAPLET PO PRN (17:20)
[2024-02-16] MEDS: MAG SULF 1GM/100ML (MAG RUN) 1 GM in IV 1 EA IV ONE (18:44)
[2024-02-16] MEDS: CREON-12 CAPSULE PO SCH (18:44)
[2024-02-16] MEDS: MAALOX 30 ML SUSP *UDC PO ONE (18:44)
[2024-02-16] MEDS: IRON SUCROSE 100 MG in NS 95 ML IV ONE (18:44)
[2024-02-16] MEDS: PANTOPRAZOLE 40MG VIAL IV ONE (18:44)
[2024-02-16] MEDS: SUCRALFATE SUSP 1GM/10ML UD PO SCH (18:45)
[2024-02-16] MEDS: LIDOCAINE VISCOUS 2% SOLN 15ML UDC PO ONE (18:45)
[2024-02-16 18:50] VITALS: BP 175/72; TEMP 98.5; O2SAT 98
[2024-02-16] MEDS: amLODIPine 5 MG TAB PO ONE ×2 (18:59→21:21)
[2024-02-16 20:33] VITALS: BP 163/69; TEMP 98.6; O2SAT 97
[2024-02-16] MEDS ORDERED: amLODIPine 5 MG TAB PO SCH (21:00)
[2024-02-16 21:11] VITALS: BP 142/65; O2SAT 97
[2024-02-16] MEDS: PANTOPRAZOLE 40MG VIAL IV SCH (21:15)
[2024-02-16] MEDS: ONDANSETRON 4MG 2ML VIAL IV PRN (21:20)
[2024-02-16] MEDS ORDERED: HYDROMORPHONE HCL 0.5 MG/ 0.5 ML SYRINGE IV PRN (21:40)
[2024-02-16 21:46] LABS: HEMOGLOBIN 7.9 g/dl (12.0-15.5)
[2024-02-16] MEDS: ACETAMINOPHEN *IV* 500 MG in IV 1 EA IV ONE (22:18)
[2024-02-16 23:27] VITALS: BP 106/59; TEMP 98.4; O2SAT 97
[2024-02-17] VITALS (10 sets, daily range): BP systolic 105–154; BP diastolic 47–91; TEMP 97.8–98.7; O2SAT 96–98
[2024-02-17 00:31] LABS: HEMATOCRIT 22.5 % (36.0-47.0); HEMOGLOBIN 7.2 g/dl (12.0-15.5)
[2024-02-17 05:08] LABS: HEMATOCRIT 27.5 % (36.0-47.0); HEMOGLOBIN 8.7 g/dl (12.0-15.5)
[2024-02-17 05:41] LABS: BLOOD UREA NITROGEN 18 MG/DL (9-23); CALCIUM LEVEL 8.4 MG/DL (8.3-10.6); CARBON DIOXIDE LEVEL 22 MMOL/L (20-31); CHLORIDE LEVEL 112 MMOL/L (98-107); CREATININE FOR GFR 0.82 MG/DL (0.55-1.30); GLOMERULAR FILTRATION RATE > 60.0 (>39); GLUCOSE, FASTING 133 MG/DL (74-106); MAGNESIUM LEVEL 1.6 MG/DL (1.8-2.4); POTASSIUM SERUM 3.9 MMOL/L (3.5-5.1); SODIUM LEVEL 141 MMOL/L (136-145)
[2024-02-17] MEDS: MAG SULF 1GM/100ML (MAG RUN) 1 GM in IV 1 EA IV ONE (06:31)
[2024-02-17] MEDS ORDERED: CREO3600 PO (08:01)
[2024-02-17] MEDS ORDERED: HYDR2.5C54 TOP (08:01)
[2024-02-17] MEDS: amLODIPine 5 MG TAB PO SCH (08:05)
[2024-02-17] MEDS ORDERED: HOME MED LIST COMPLETE! XX SCH (08:05)
[2024-02-17] MEDS ORDERED: SELF1KIT MC (11:09)
[2024-02-17 11:55] LABS: HEMATOCRIT 33.9 % (36.0-47.0)
[2024-02-17 11:57] LABS: HEMOGLOBIN 10.9 g/dl (12.0-15.5)
== END 2024-02-17 11:46 | disposition home or self-care (01) ==
LOC: M OPP 11:26 → M ED INP 11:27 → M ICU 16:57
PROVIDERS: ADMIT General Practice; ATTEND General Practice
DX: I85.00 Esophageal varices without bleeding (principal); K76.6 Portal hypertension; K31.89 Other diseases of stomach and duodenum; R19.7 Diarrhea, unspecified; I97.88 Other intraoperative complications of the circulatory system, not elsewhere classified; R00.1 Bradycardia, unspecified; K74.60 Unspecified cirrhosis of liver; D64.9 Anemia, unspecified; E83.42 Hypomagnesemia; R74.01 Elevation of levels of liver transaminase levels; E80.6 Other disorders of bilirubin metabolism; E78.5 Hyperlipidemia, unspecified; D3A.00 Benign carcinoid tumor of unspecified site; D36.9 Benign neoplasm, unspecified site; I10 Essential (primary) hypertension; K21.9 Gastro-esophageal reflux disease without esophagitis; E11.9 Type 2 diabetes mellitus without complications; Z88.0 Allergy status to penicillin; Z88.2 Allergy status to sulfonamides; Z88.5 Allergy status to narcotic agent; Z88.8 Allergy status to other drugs, medicaments and biological substances; Z88.7 Allergy status to serum and vaccine; Z79.899 Other long term (current) drug therapy; Z83.3 Family history of diabetes mellitus; Z82.49 Family history of ischemic heart disease and other diseases of the circulatory system; R06.02 Shortness of breath
CPT/HCPCS: 36415; 43244; 45331; 80048; 80076; 82728; 83550; 83735; 83880; 84436; 84443; 84479; 85014; 85018; 85025; 85046; 85610; 85730; 86618; 86850; 86900; 86901; 86920; 88305; 93005; 96365; 96366; 96367; 96375; 96376; 97161; 97165; C9113; G0378; J0131; J1756; J2405; J3475; P9016

== ENCOUNTER → 2024-03-03 | Outpatient (REF) | payer MEDICARE ==
[~2024-03-03] MED LIST changes: +CREO3600 PO; +HYDR2.5C54 TOP; +PANC10CAEC PO; +SELF1KIT MC
[2024-03-03 18:21] LABS: HEMATOCRIT 34.7 % (36.0-47.0); HEMOGLOBIN 11.1 g/dl (12.0-15.5); MEAN CORPUSCULAR HEMOGLOBIN 26.7 pg (27.0-33.0); MEAN CORPUSCULAR VOLUME 83.4 fl (80.0-96.0); PLATELET COUNT, AUTOMATED 248 10^3/uL (150-450); RED BLOOD COUNT 4.16 10^6/uL (4.00-5.40); WHITE BLOOD COUNT 7.2 10^3/uL (4.0-10.0)
[2024-03-03 18:22] LABS: CALCIUM LEVEL 8.7 MG/DL (8.3-10.6); CREATININE FOR GFR 1.06 MG/DL (0.55-1.30); GLOMERULAR FILTRATION RATE 54.4 (>39); PERCENT SATURATION 14.5 % (13.2-45.0)
== END ==
LOC: M SFHCCLAY 10:22
PROVIDERS: ATTEND Family Medicine
DX: E11.9 Type 2 diabetes mellitus without complications (principal); D64.9 Anemia, unspecified

== ENCOUNTER → 2024-03-11 | Outpatient (CLI) | payer MEDICARE ==
[~2024-03-11] MED LIST changes: +PEPC40TA12 PO; +TORS100T PO
[2024-03-11 11:25] VITALS: TEMP 98
[2024-03-11 11:30] LABS: BASO # 0.1 10^3/uL (0.0-0.2); BASO % 0.8 % (0.0-1.0); EOS # 0.2 10^3/uL (0.0-0.5); EOS % 3.7 % (0.0-3.0); HEMATOCRIT 35.1 % (36.0-47.0); HEMOGLOBIN 11.1 g/dl (12.0-15.5); LYMPH # 1.6 10^3/uL (1.5-5.0); LYMPH % 26.2 % (24.0-44.0); MEAN CORPUSCULAR HEMOGLOBIN 26.5 pg (27.0-33.0); MEAN CORPUSCULAR HGB CONC 31.6 g/dl (32.0-36.5); MEAN CORPUSCULAR VOLUME 83.8 fl (80.0-96.0); MONO # 0.5 10^3/uL (0.0-0.8); MONO % 8.8 % (2.0-8.0); NEUTROPHILS # 3.6 10^3/uL (1.5-8.5); NEUTROPHILS % 60.2 % (36.0-66.0); PLATELET COUNT, AUTOMATED 246 10^3/uL (150-450); RED BLOOD COUNT 4.19 10^6/uL (4.00-5.40)
[2024-03-11 11:42] LABS: INR 1.58; PROTHROMBIN TIME 18.4 SECONDS (12.5-14.5)
[2024-03-11 11:49] VITALS: BP 144/67; O2SAT 97
[2024-03-11 11:51] LABS: ALBUMIN 2.6 G/DL (3.2-5.2); BILIRUBIN,TOTAL 2.2 MG/DL (0.3-1.2); CALCIUM LEVEL 8.7 MG/DL (8.3-10.6); CREATININE FOR GFR 1.07 MG/DL (0.55-1.30); GLOMERULAR FILTRATION RATE 53.8 (>39); POTASSIUM SERUM 3.7 MMOL/L (3.5-5.1); TOTAL PROTEIN 6.6 G/DL (5.7-8.2)
[2024-03-11 11:55] VITALS: BP 154/69; O2SAT 98
[2024-03-11 12:03] VITALS: BP 136/78; O2SAT 97
[2024-03-11 12:18] VITALS: O2SAT 97
[2024-03-11 12:21] LABS: ASCITES FL COLOR PALE YELLOW (COLORLESS); SOURCE, BODY FLUID ASCITES
[2024-03-11 12:22] LABS: APPEARANCE, BODY FLUID HAZY (CLEAR)
[2024-03-11 12:41] VITALS: BP 132/70; O2SAT 97
[2024-03-11 13:32] LABS: SOURCE, BODY FLUID ALBUMIN ASCITES
[2024-03-11 13:39] LABS: SOURCE, BODY FLUID TOT PROTEIN ASCITES; TOTAL PROTEIN, BODY FLUID < 2.0 G/DL (NOT ESTABLISHED)
== END ==
LOC: M IRPRO 10:55
PROVIDERS: ATTEND Internal Medicine Gastroenterology
DX: R18.8 Other ascites (principal); K74.60 Unspecified cirrhosis of liver; R97.8 Other abnormal tumor markers
CPT/HCPCS: 49083; 80053; 82042; 84157; 85025; 85610; 88108; 88305; 88313; 89051; 96365; P9047

== ENCOUNTER 2024-03-25 11:05 | Day surgery (SDC) | payer MEDICARE ==
[~2024-03-25] VITALS: Ht 160 cm; Wt 75.3 kg
[2024-03-25] MEDS: NS 1,000 ML IV ONE (06:00)
[~2024-03-25 11:05] MED LIST changes: +fentaNYL 100 MCG/2 ML INJECTION As Ordered ONE; +propofoL 200 MG/20 ML VIAL As Ordered ONE
[2024-03-25 12:55] VITALS: TEMP 97.8
[2024-03-25 13:10] VITALS: BP 118/60; O2SAT 98
== END 2024-03-25 13:30 | disposition home or self-care (01) ==
LOC: M OPP 11:05
PROVIDERS: ATTEND Internal Medicine Gastroenterology
DX: I85.00 Esophageal varices without bleeding (principal); K31.89 Other diseases of stomach and duodenum; K76.6 Portal hypertension; E11.9 Type 2 diabetes mellitus without complications; I10 Essential (primary) hypertension; Z79.1 Long term (current) use of non-steroidal anti-inflammatories (NSAID); Z79.899 Other long term (current) drug therapy; Z88.0 Allergy status to penicillin; Z88.1 Allergy status to other antibiotic agents; Z88.2 Allergy status to sulfonamides; Z88.8 Allergy status to other drugs, medicaments and biological substances
CPT/HCPCS: 43235; J3010

== ENCOUNTER → 2024-03-30 | Outpatient (CLI) | payer MEDICARE ==
[~2024-03-30] MED LIST changes: -fentaNYL 100 MCG/2 ML INJECTION As Ordered ONE; -propofoL 200 MG/20 ML VIAL As Ordered ONE
[2024-03-30 10:55] VITALS: BP 137/54; TEMP 98; O2SAT 96
[2024-03-30 10:58] VITALS: BP 128/61; O2SAT 96
[2024-03-30 11:05] VITALS: BP 126/57; O2SAT 98
[2024-03-30 11:12] VITALS: BP 129/50; O2SAT 97
== END ==
LOC: M IRPRO 09:58
PROVIDERS: ATTEND Internal Medicine Gastroenterology
DX: R18.8 Other ascites (principal); K74.60 Unspecified cirrhosis of liver; R97.8 Other abnormal tumor markers
CPT/HCPCS: 49083; 96365; P9047

== ENCOUNTER → 2024-04-22 | Outpatient (REF) | payer MEDICARE | LOC: M LAB REF 11:25 | PROVIDERS: ATTEND Nurse Practitioner Family | DX: R30.0 Dysuria (principal) ==

== ENCOUNTER → 2024-04-29 | Outpatient (CLI) | payer MEDICARE ==
[2024-04-29 11:50] VITALS: TEMP 97
[2024-04-29 12:26] VITALS: BP 120/68; O2SAT 96
[2024-04-29 12:29] VITALS: BP 128/64; O2SAT 96
[2024-04-29 12:35] VITALS: BP 118/60; O2SAT 97
[2024-04-29 12:38] VITALS: BP 116/58; O2SAT 97
== END ==
LOC: M IRPRO 11:42
PROVIDERS: ATTEND Internal Medicine Gastroenterology
DX: R18.8 Other ascites (principal); K74.60 Unspecified cirrhosis of liver; R97.8 Other abnormal tumor markers
CPT/HCPCS: 49083; 96365; P9047

== ENCOUNTER → 2024-06-03 | Outpatient (CLI) | payer MEDICARE ==
[2024-06-03 10:20] VITALS: TEMP 97.1
[2024-06-03 10:46] VITALS: BP 143/62; O2SAT 96
[2024-06-03 10:57] VITALS: BP 134/59; O2SAT 97
[2024-06-03 11:04] VITALS: BP 137/57; O2SAT 97
[2024-06-03 11:11] VITALS: BP 136/63; O2SAT 98
[2024-06-03 11:30] VITALS: BP 111/50; O2SAT 98
== END ==
LOC: M IRPRO 10:04
PROVIDERS: ATTEND Internal Medicine Gastroenterology
DX: R18.8 Other ascites (principal); K74.60 Unspecified cirrhosis of liver; R97.8 Other abnormal tumor markers
CPT/HCPCS: 49083; 96365; P9047

== ENCOUNTER → 2024-06-22 | Outpatient (REF) | payer MEDICARE ==
[2024-06-22 17:45] LABS: ALBUMIN 2.6 G/DL (3.2-5.2); BILIRUBIN,TOTAL 1.8 MG/DL (0.3-1.2); CALCIUM LEVEL 8.5 MG/DL (8.3-10.6); CHOLESTEROL RISK RATIO 4.5 (<5); CREATININE FOR GFR 1.05 MG/DL (0.55-1.30); HEMATOCRIT 31.8 % (36.0-47.0); HEMOGLOBIN 10.6 g/dl (12.0-15.5); LDL CHOLESTEROL 132.6 MG/DL (<100); MEAN CORPUSCULAR HGB CONC 33.3 g/dl (32.0-36.5); PLATELET COUNT, AUTOMATED 232 10^3/uL (150-450); POTASSIUM SERUM 3.9 MMOL/L (3.5-5.1); RED BLOOD COUNT 3.42 10^6/uL (4.00-5.40); TOTAL PROTEIN 6.3 G/DL (5.7-8.2); WHITE BLOOD COUNT 6.5 10^3/uL (4.0-10.0)
[2024-06-22 17:49] LABS: FREE T4 1.21 NG/DL (0.89-1.76); THYROID STIMULATING HORMONE 2.334 uIU/ML (0.55-4.78)
[2024-06-22 18:01] LABS: HEMOGLOBIN A1c 5.1 % (4.0-6.0)
== END ==
LOC: M SFHCCLAY 11:35
PROVIDERS: ATTEND Family Medicine
DX: K74.60 Unspecified cirrhosis of liver (principal); I85.11 Secondary esophageal varices with bleeding; E11.9 Type 2 diabetes mellitus without complications

== ENCOUNTER → 2024-06-30 | Outpatient (CLI) | payer MEDICARE ==
[2024-06-30 09:05] VITALS: TEMP 97.9
[2024-06-30 09:48] VITALS: BP 117/55; O2SAT 98
[2024-06-30 09:52] VITALS: BP 119/55; O2SAT 98
[2024-06-30 09:58] VITALS: BP 113/55; O2SAT 98
[2024-06-30 10:03] VITALS: BP 108/62; O2SAT 98
[2024-06-30 10:15] VITALS: BP 114/59; O2SAT 99
== END ==
LOC: M IRPRO 08:57
PROVIDERS: ATTEND Internal Medicine Gastroenterology
DX: R18.8 Other ascites (principal); K74.60 Unspecified cirrhosis of liver; R97.8 Other abnormal tumor markers
CPT/HCPCS: 49083; 96365; P9047

== ENCOUNTER → 2024-07-13 | Outpatient (CLI) | payer MEDICARE ==
[2024-07-13 13:37] VITALS: TEMP 97.4
[2024-07-13 14:01] VITALS: BP 138/66; O2SAT 98
[2024-07-13 14:06] VITALS: BP 121/62; O2SAT 98
[2024-07-13 14:09] VITALS: BP 137/63; O2SAT 98
[2024-07-13 14:13] VITALS: BP 121/60; O2SAT 98
[2024-07-13 14:19] VITALS: BP 126/66; O2SAT 98
== END ==
LOC: M IRPRO 13:02
PROVIDERS: ATTEND Internal Medicine Gastroenterology
DX: R18.8 Other ascites (principal); K74.60 Unspecified cirrhosis of liver; R97.8 Other abnormal tumor markers
CPT/HCPCS: 49083; 96365; P9047

== ENCOUNTER → 2024-07-14 | Outpatient (REF) | payer MEDICARE ==
[2024-07-14 16:34] LABS: BASO # 0.1 10^3/uL (0.0-0.2); BASO % 0.7 % (0.0-1.0); EOS # 0.2 10^3/uL (0.0-0.5); EOS % 2.1 % (0.0-3.0); HEMATOCRIT 34.5 % (36.0-47.0); HEMOGLOBIN 11.5 g/dl (12.0-15.5); LYMPH # 1.5 10^3/uL (1.5-5.0); LYMPH % 20.6 % (24.0-44.0); MEAN CORPUSCULAR HEMOGLOBIN 30.7 pg (27.0-33.0); MEAN CORPUSCULAR HGB CONC 33.3 g/dl (32.0-36.5); MEAN CORPUSCULAR VOLUME 92.2 fl (80.0-96.0); MONO # 0.5 10^3/uL (0.0-0.8); NEUTROPHILS # 4.9 10^3/uL (1.5-8.5); NEUTROPHILS % 69.2 % (36.0-66.0); PLATELET COUNT, AUTOMATED 232 10^3/uL (150-450); RED BLOOD COUNT 3.74 10^6/uL (4.00-5.40); WHITE BLOOD COUNT 7.1 10^3/uL (4.0-10.0)
[2024-07-14 16:39] LABS: ALBUMIN 3.1 G/DL (3.2-5.2)
[2024-07-14 16:44] LABS: INR 1.53; PROTHROMBIN TIME 17.9 SECONDS (12.5-14.5)
== END ==
LOC: M SFHCCLAY 09:19
PROVIDERS: ATTEND Family Medicine
DX: K74.60 Unspecified cirrhosis of liver (principal); R18.8 Other ascites; D3A.00 Benign carcinoid tumor of unspecified site

== ENCOUNTER → 2024-07-26 | Outpatient (CLI) | payer MEDICARE ==
[~2024-07-26] MED LIST changes: -CRAN500C11 PO; +CVS500CA5 PO
[2024-07-26 12:00] VITALS: TEMP 97.4
[2024-07-26 12:24] VITALS: BP 128/55; O2SAT 99
[2024-07-26 12:29] VITALS: BP 124/60; O2SAT 99
[2024-07-26 12:36] VITALS: BP 122/55; O2SAT 100
[2024-07-26 12:42] VITALS: BP 123/53; O2SAT 98
[2024-07-26 12:55] VITALS: BP 119/54; O2SAT 99
== END ==
LOC: M IRPRO 11:49
PROVIDERS: ATTEND Internal Medicine Gastroenterology
DX: R18.8 Other ascites (principal); K74.60 Unspecified cirrhosis of liver; R97.8 Other abnormal tumor markers
CPT/HCPCS: 49083; 96365; P9047

== ENCOUNTER → 2024-08-05 | Outpatient (CLI) | payer MEDICARE ==
[2024-08-05 11:25] VITALS: TEMP 97.3
[2024-08-05 11:58] VITALS: BP 120/61; O2SAT 100
[2024-08-05 12:04] VITALS: BP 119/65; O2SAT 97
[2024-08-05 12:13] VITALS: BP 126/60; O2SAT 100
[2024-08-05 12:18] VITALS: BP 114/57; O2SAT 99
== END ==
LOC: M IRPRO 11:17
PROVIDERS: ATTEND Internal Medicine Gastroenterology
DX: R18.8 Other ascites (principal); K74.60 Unspecified cirrhosis of liver; R97.8 Other abnormal tumor markers
CPT/HCPCS: 49083; 96365; P9047

== ENCOUNTER 2024-08-08 00:08 | Emergency (ER) | payer MEDICARE ==
[~2024-08-08] VITALS: Ht 157.5 cm; Wt 63.6 kg
[2024-08-08 01:55] LABS: BASO % 0.2 % (0.0-1.0); EOS % 0.3 % (0.0-3.0); HEMATOCRIT 31.9 % (36.0-47.0); HEMOGLOBIN 11.1 g/dl (12.0-15.5); LYMPH % 10.3 % (24.0-44.0); MEAN CORPUSCULAR HEMOGLOBIN 31.4 pg (27.0-33.0); MEAN CORPUSCULAR HGB CONC 34.8 g/dl (32.0-36.5); MEAN CORPUSCULAR VOLUME 90.1 fl (80.0-96.0); MONO # 0.5 10^3/uL (0.0-0.8); MONO % 4.7 % (2.0-8.0); NEUTROPHILS # 8.3 10^3/uL (1.5-8.5); NEUTROPHILS % 84.2 % (36.0-66.0); PLATELET COUNT, AUTOMATED 288 10^3/uL (150-450); RED BLOOD COUNT 3.54 10^6/uL (4.00-5.40); WHITE BLOOD COUNT 9.9 10^3/uL (4.0-10.0)
[2024-08-08 02:22] LABS: ALBUMIN 2.8 G/DL (3.2-5.2); BILIRUBIN,DIRECT 1.2 MG/DL (<0.4); BILIRUBIN,TOTAL 2.7 MG/DL (0.3-1.2); CALCIUM LEVEL 9.4 MG/DL (8.3-10.6); CREATININE FOR GFR 1.31 MG/DL (0.55-1.30); GLOMERULAR FILTRATION RATE 42.5 (>39); TOTAL PROTEIN 6.8 G/DL (5.7-8.2)
[2024-08-08] MEDS: ONDANSETRON 4MG 2ML VIAL IV ONE (03:39)
[2024-08-08] MEDS: PROMETHAZINE 25MG/ML 1ML VIAL IV ONE ×2 (04:39→09:51)
[2024-08-08] MEDS ORDERED: ISOVUE-370 76% 100ML VIAL As Ordered ONE (05:26)
[2024-08-08 06:15] VITALS: TEMP 97
[2024-08-08] MEDS: NS 1,000 ML IV ONE (07:48)
[2024-08-08 09:45] VITALS: BP 129/61; O2SAT 100
[2024-08-08 09:59] LABS: INR 1.76; PARTIAL THROMBOPLASTIN TIME 31.1 SECONDS (24.8-34.2)
== END 2024-08-08 09:58 | disposition short-term general hospital (02) ==
LOC: M ED 00:08
DX: I81 Portal vein thrombosis (principal); I82.890 Acute embolism and thrombosis of other specified veins; K74.69 Other cirrhosis of liver; K21.9 Gastro-esophageal reflux disease without esophagitis; Z88.0 Allergy status to penicillin; Z88.1 Allergy status to other antibiotic agents; Z88.2 Allergy status to sulfonamides; Z88.7 Allergy status to serum and vaccine; Z88.5 Allergy status to narcotic agent; Z79.1 Long term (current) use of non-steroidal anti-inflammatories (NSAID); Z79.899 Other long term (current) drug therapy
CPT/HCPCS: 74177; 80048; 80076; 83690; 85025; 85610; 85730; 87486; 87581; 87633; 87798; 93041; 96361; 96374; 96375; 96376; 99285; J2405; J2550; Q9967

== ENCOUNTER → 2024-08-19 | Outpatient (REF) | payer MEDICARE ==
[2024-08-19 12:22] LABS: CALCIUM LEVEL 9.5 MG/DL (8.3-10.6); CREATININE FOR GFR 1.02 MG/DL (0.55-1.30); GLOMERULAR FILTRATION RATE 56.7 (>39); POTASSIUM SERUM 4.4 MMOL/L (3.5-5.1)
== END ==
LOC: M SFHCCLAY 11:44
PROVIDERS: ATTEND Family Medicine
DX: I10 Essential (primary) hypertension (principal); E11.9 Type 2 diabetes mellitus without complications

== ENCOUNTER → 2024-08-27 | Outpatient (CLI) | payer MEDICARE ==
[2024-08-27 10:40] VITALS: BP 155/72; TEMP 97.3; O2SAT 99
[2024-08-27 11:01] LABS: INR 3.7; PROTHROMBIN TIME 36.4 SECONDS (12.5-14.5)
== END ==
LOC: M IRPRO 10:12
PROVIDERS: ATTEND Internal Medicine Gastroenterology
DX: R18.8 Other ascites (principal)

== ENCOUNTER → 2024-08-30 | Outpatient (CLI) | payer MEDICARE ==
[2024-08-30 10:14] VITALS: TEMP 97.5
[2024-08-30 10:48] LABS: INR 2.39; PROTHROMBIN TIME 26.2 SECONDS (12.5-14.5)
[2024-08-30 11:37] VITALS: BP 135/71; O2SAT 99
[2024-08-30 11:43] VITALS: BP 136/59; O2SAT 99
[2024-08-30 11:46] VITALS: BP 128/58; O2SAT 99
[2024-08-30 11:51] VITALS: BP 131/60; O2SAT 98
== END ==
LOC: M IRPRO 10:04
PROVIDERS: ATTEND Internal Medicine Gastroenterology
DX: R18.8 Other ascites (principal); K74.60 Unspecified cirrhosis of liver; R97.8 Other abnormal tumor markers
CPT/HCPCS: 36415; 49083; 85610; 96365; P9047

== ENCOUNTER → 2024-09-06 | Outpatient (REF) | payer MEDICARE ==
[~2024-09-06] MED LIST changes: +FURO20TA2 PO; +WARF-18 PO
[2024-09-06 17:32] LABS: HEMATOCRIT 27.8 % (36.0-47.0); HEMOGLOBIN 9.2 g/dl (12.0-15.5); MEAN CORPUSCULAR HEMOGLOBIN 30.1 pg (27.0-33.0); MEAN CORPUSCULAR HGB CONC 33.1 g/dl (32.0-36.5); MEAN CORPUSCULAR VOLUME 90.8 fl (80.0-96.0); PLATELET COUNT, AUTOMATED 312 10^3/uL (150-450); RED BLOOD COUNT 3.06 10^6/uL (4.00-5.40); WHITE BLOOD COUNT 8.7 10^3/uL (4.0-10.0)
[2024-09-06 18:04] LABS: CALCIUM LEVEL 9.5 MG/DL (8.3-10.6); CREATININE FOR GFR 1.48 MG/DL (0.55-1.30); GLOMERULAR FILTRATION RATE 36.9 (>39)
== END ==
LOC: M SFHCCLAY 09:29
PROVIDERS: ATTEND Family Medicine
DX: I81 Portal vein thrombosis (principal)

== ENCOUNTER → 2024-09-08 | Outpatient (CLI) | payer MEDICARE ==
[2024-09-08 10:12] VITALS: BP 167/74; TEMP 97.7; O2SAT 99
[2024-09-08 10:48] LABS: INR 3.56; PROTHROMBIN TIME 35.3 SECONDS (12.5-14.5)
== END ==
LOC: M IRPRO 09:58
PROVIDERS: ATTEND Internal Medicine Gastroenterology
DX: R18.8 Other ascites (principal); K74.60 Unspecified cirrhosis of liver; R97.8 Other abnormal tumor markers

== ENCOUNTER → 2024-09-10 | Outpatient (CLI) | payer MEDICARE ==
[2024-09-10 09:15] VITALS: TEMP 97.4
[2024-09-10 09:41] LABS: INR 2.88; PROTHROMBIN TIME 30.1 SECONDS (12.5-14.5)
[2024-09-10 10:07] VITALS: BP 123/55; O2SAT 100
[2024-09-10 10:11] VITALS: BP 127/57; O2SAT 100
[2024-09-10 10:16] VITALS: BP 117/54; O2SAT 100
[2024-09-10 10:22] VITALS: BP 132/64; O2SAT 100
[2024-09-10 10:30] VITALS: BP 122/78; O2SAT 100
== END ==
LOC: M IRPRO 09:00
PROVIDERS: ATTEND Internal Medicine Gastroenterology
DX: R18.8 Other ascites (principal); K74.60 Unspecified cirrhosis of liver; R97.8 Other abnormal tumor markers
CPT/HCPCS: 36415; 49083; 85610; 96365; P9047

== ENCOUNTER 2024-09-11 04:49 | Emergency (ER) | payer MEDICARE ==
[~2024-09-11] VITALS: Ht 160 cm; Wt 59.3 kg
[2024-09-11] MEDS: ONDANSETRON 4MG 2ML VIAL IV ONE (05:25)
[2024-09-11 05:41] LABS: VENOUS BASE EXCESS -2.9 (-2.0-2.0); VENOUS HCO3 20.8 MMOL/L (23.0-27.0); VENOUS O2 SATURATION 63.4 % (60.0-80.0); VENOUS PARTIAL PRESSURE O2 35.4 mmHg (30.0-50.0); VENOUS PH 7.431 UNITS (7.330-7.430); VENOUS STANDARD HCO3 21.5 MMOL/L; VENOUS TOTAL CO2 21.8 MMOL/L (24.0-28.0)
[2024-09-11 05:45] LABS: BASO % 0.3 % (0.0-1.0); EOS # 0.1 10^3/uL (0.0-0.5); LYMPH # 1.1 10^3/uL (1.5-5.0); LYMPH % 18.7 % (24.0-44.0); MEAN CORPUSCULAR HEMOGLOBIN 30.2 pg (27.0-33.0); MEAN CORPUSCULAR HGB CONC 33.3 g/dl (32.0-36.5); MEAN CORPUSCULAR VOLUME 90.6 fl (80.0-96.0); MONO # 0.4 10^3/uL (0.0-0.8); NEUTROPHILS # 4.4 10^3/uL (1.5-8.5); NEUTROPHILS % 73.8 % (36.0-66.0); PLATELET COUNT, AUTOMATED 216 10^3/uL (150-450); RED BLOOD COUNT 2.65 10^6/uL (4.00-5.40)
[2024-09-11 06:04] LABS: INR 2.61; PARTIAL THROMBOPLASTIN TIME 36.5 SECONDS (24.8-34.2); PROTHROMBIN TIME 27.9 SECONDS (12.5-14.5)
[2024-09-11 06:11] LABS: ALBUMIN 3.1 G/DL (3.2-5.2); BILIRUBIN,TOTAL 2.3 MG/DL (0.3-1.2); CALCIUM LEVEL 9.4 MG/DL (8.3-10.6); CREATININE FOR GFR 1.42 MG/DL (0.55-1.30); GLOMERULAR FILTRATION RATE 38.7 (>39); POTASSIUM SERUM 5.1 MMOL/L (3.5-5.1); TOTAL PROTEIN 6.3 G/DL (5.7-8.2)
[2024-09-11] MEDS ORDERED: ISOVUE-370 76% 100ML VIAL As Ordered ONE (06:55)
[2024-09-11 07:45] VITALS: BP 99/46; TEMP 96.5; O2SAT 100
[2024-09-11 08:00] VITALS: BP 101/49; TEMP 97.5; O2SAT 100
[2024-09-11 08:35] VITALS: BP 106/58; O2SAT 100
[2024-09-11] MEDS: NS 500 ML IV ONE (08:41)
[2024-09-11] MEDS: PANTOPRAZOLE 40MG VIAL IV ONE (09:09)
[2024-09-11 09:34] VITALS: BP 137/58; TEMP 97.4; O2SAT 100
[2024-09-11 10:35] VITALS: BP 108/52; TEMP 96.7; O2SAT 100
== END 2024-09-11 10:36 | disposition short-term general hospital (02) ==
LOC: M ED 04:49
DX: K92.2 Gastrointestinal hemorrhage, unspecified (principal); D64.9 Anemia, unspecified; E11.9 Type 2 diabetes mellitus without complications; I50.22 Chronic systolic (congestive) heart failure; I11.0 Hypertensive heart disease with heart failure; K21.9 Gastro-esophageal reflux disease without esophagitis; K64.9 Unspecified hemorrhoids; Z88.0 Allergy status to penicillin; Z88.2 Allergy status to sulfonamides; Z88.1 Allergy status to other antibiotic agents; Z88.5 Allergy status to narcotic agent; Z88.7 Allergy status to serum and vaccine; Z79.1 Long term (current) use of non-steroidal anti-inflammatories (NSAID); Z79.01 Long term (current) use of anticoagulants; Z79.899 Other long term (current) drug therapy
CPT/HCPCS: 36430; 71045; 74177; 80053; 82140; 82803; 83605; 83690; 85025; 85610; 85730; 86850; 86900; 86901; 86920; 87040; 96361; 96374; 96375; 99285; J2405; J2470; P9016; Q9967

== ENCOUNTER → 2024-10-21 | Outpatient (RCR) | payer MEDICARE ==
[2022-08-26 13:10] VITALS: BP 136/80; O2SAT 98
[2022-08-26 14:35] LABS: BASO % 0.6 % (0.0-1.0); EOS # 0.1 10^3/uL (0.0-0.5); EOS % 2.3 % (0.0-3.0); HEMATOCRIT 32.4 % (36.0-47.0); HEMOGLOBIN 10.1 g/dl (12.0-15.5); LYMPH # 1.5 10^3/uL (1.5-5.0); LYMPH % 27.2 % (24.0-44.0); MEAN CORPUSCULAR HEMOGLOBIN 27.4 pg (27.0-33.0); MEAN CORPUSCULAR HGB CONC 31.2 g/dl (32.0-36.5); MONO # 0.3 10^3/uL (0.0-0.8); MONO % 4.9 % (2.0-8.0); NEUTROPHILS # 3.5 10^3/uL (1.5-8.5); NEUTROPHILS % 64.6 % (36.0-66.0); PLATELET COUNT, AUTOMATED 154 10^3/uL (150-450); RED BLOOD COUNT 3.68 10^6/uL (4.00-5.40); WHITE BLOOD COUNT 5.3 10^3/uL (4.0-10.0)
[2022-08-26 15:21] LABS: ALBUMIN 3.5 GM/DL (3.2-5.2); ALKALINE PHOSPHATASE 82 U/L (45-117); ALT/SGPT 22 U/L (12-78); AST/SGOT 27 U/L (7-37); BILIRUBIN,TOTAL 0.7 MG/DL (0.2-1.0); BLOOD UREA NITROGEN 10 MG/DL (7-18); CALCIUM LEVEL 9.2 MG/DL (8.8-10.2); CARBON DIOXIDE LEVEL 24 MEQ/L (21-32); CHLORIDE LEVEL 110 MEQ/L (98-107); CREATININE FOR GFR 0.97 MG/DL (0.55-1.30); FERRITIN 8 NG/ML (8-252); GLOMERULAR FILTRATION RATE > 60.0 (>39); GLUCOSE, FASTING 212 MG/DL (70-100); IRON (FE) 33 UG/DL (50-170); PERCENT SATURATION 7.2 % (13.2-45.0); POTASSIUM SERUM 4.2 MEQ/L (3.5-5.1); SODIUM LEVEL 140 MEQ/L (136-145); TOTAL IRON BINDING CAPACITY 457 UG/DL (250-450); TOTAL PROTEIN 7.3 GM/DL (6.4-8.2)
[2022-08-29 17:07] LABS: SOLUBLE TRANSFERRIN RECEPTOR 25.4 nmol/L (12.2-27.3)
[2022-09-20] MEDS: FERRIC CARBOXYMALTOSE INJ 750 MG, VIAL MATE ADAPTER 1 EACH in NS 250 ML IV SCH (13:32)
[2022-09-20 13:37] VITALS: BP 145/62; O2SAT 96
[2022-09-20 14:39] VITALS: BP 120/77; O2SAT 79
[2022-09-27 12:54] VITALS: BP 182/68; O2SAT 100
[2022-09-27] MEDS: FERRIC CARBOXYMALTOSE INJ 750 MG, VIAL MATE ADAPTER 1 EACH in NS 250 ML IV SCH (13:39)
[2022-09-27] MEDS: SODIUM CHLORIDE 0.9% INJ 10 ML SYR IV PRN (14:40)
[2022-09-27 14:41] VITALS: BP 176/68; O2SAT 98
[2022-10-01 11:44] VITALS: BP 140/68; O2SAT 97
[2022-12-30 14:31] VITALS: BP 150/82; O2SAT 97
[2023-07-02 13:23] VITALS: BP 160/78; O2SAT 97
[~2024-10-21] VITALS: Ht 160 cm; Wt 80.3 kg
== END | disposition expired ==
LOC: M ONCM 08-26 12:39
PROVIDERS: ATTEND Internal Medicine Medical Oncology
DX: C15.9 Malignant neoplasm of esophagus, unspecified (principal); R97.8 Other abnormal tumor markers; D50.9 Iron deficiency anemia, unspecified; R16.2 Hepatomegaly with splenomegaly, not elsewhere classified; D69.6 Thrombocytopenia, unspecified; E11.9 Type 2 diabetes mellitus without complications; Z79.84 Long term (current) use of oral hypoglycemic drugs; Z79.899 Other long term (current) drug therapy; Z87.891 Personal history of nicotine dependence; D64.9 Anemia, unspecified; I85.00 Esophageal varices without bleeding; K74.60 Unspecified cirrhosis of liver
CPT/HCPCS: 36415; 80053; 82728; 83520; 83550; 85025; 86316; 96365; G0463; J1439